=== PATIENT | male | born 1940 | race Caucasian/White ===

== ENCOUNTER 2017-02-19 14:48 | Inpatient (IN) | payer MEDICARE, BC ==
--- NOTE | ~2017-02-19 | CR72 ---
[facility] A Service of [facility] RADIOLOGY TEXT RESULTS PATIENT: MC RASHEED [facility] : [facility] UNIT #: [id number] AGE: [address]: Alondra Reis MD SEX: M ORDER DR: [id number] [facility] [address] [facility]. [place], [place] [address] [id number] MR#: [id number] Acc #: [id number] NAME: MC RASHEED. : 1940 SEX: M STUDY DATE/TIME: 02/21/2017 9:44 UNIT[facility] ROOM: [address] [place] [address] DESCRIPTION: CR Chest Single View Portable Attending Physician: Alondra Reis M.D. Ordering Physician: Alondra Reis M.D. Primary Care Physician: No Primary Care Physician MEDICAL IMAGING REPORT This report is preliminary unless electronic signature is present EXAM Chest x-ray portable. HISTORY Cough and chest congestion, left hip replacement a day ago. Symptoms for 1 day. COMMENT Single frontal portable view chest timed 9:44, 02/21/2017. COMPARISON Compared to 02/19/2017. FINDINGS Redemonstrated is underlying chronic lung disease. There might be minor atelectasis at the lung bases when comparison is made to prior. There is no congestive failure, pneumothorax or pleural effusion suspected. Heart size is top normal. IMPRESSION There is likely minor bibasilar atelectasis, otherwise, no active disease. I suspect there is underlying chronic lung disease. Please correlate with history. Dictated by... Anuja Che M.D. THIS IS AN ELECTRONICALLY VERIFIED REPORT Anuja Che M.D. at 02/22/2017 7:25 AM SANJEEV/gina TD: 02/21/2017 21:27 [facility] A Service of [facility] RADIOLOGY TEXT RESULTS PATIENT: MC RASHEED [facility] : 42 UNIT #: [id number] AGE: [address]: Alondra Reis MD SEX: M ORDER DR: JOB #: [id number] MEDICAL IMAGING REPORT Page 1 of 1 COPY
--- NOTE | ~2017-02-19 | CR71 ---
[facility] A Service of [facility] RADIOLOGY TEXT RESULTS PATIENT: MC RASHEED LOCATION: [facility] 470-01 : 42 UNIT #: [id number] AGE: [address]: Adele Triplett MD SEX: M ORDER DR: [id number] [facility] [address] [facility]. [place], [place] [address] [id number] MR#: [id number] Acc #: [id number] NAME: MC RASHEED. : 1940 SEX: M STUDY DATE/TIME: 02/19/2017 15:43 UNIT: [facility] ROOM: [facility] STUDY DESCRIPTION: CR Chest Single View Attending Physician: Virginia Edmond M.D. Ordering Physician: Bisi Parrish M.D. Primary Care Physician: No Primary Care Physician MEDICAL IMAGING REPORT This report is preliminary unless electronic signature is present EXAM Portable chest x-ray, 02/19/2017. HISTORY Trauma. Fall. Left-sided hip pain status post fall today. Fall. Left side hip pain. FINDINGS Two AP radiographs of the chest are presented. Comparison 04/14/2016. No acute-appearing bony abnormality. Moderate levoscoliosis of the thoracic spine. Lungs appear somewhat hyperinflated and relatively lucent in the upper lung zone suggesting underlying emphysema. There is no evidence of acute pulmonary disease. No pleural effusion or pneumothorax. No suspicious nodule. Dictated by... Huan Pinto M.D. THIS IS AN ELECTRONICALLY VERIFIED REPORT Huan Pinto M.D. at 02/20/2017 9:40 PM Christiano TD: 02/19/2017 19:49 JOB #: [id number] MEDICAL IMAGING REPORT Page 1 of 1 COPY
--- NOTE | ~2017-02-19 | CR206 ---
[facility] A Service of [facility] RADIOLOGY TEXT RESULTS PATIENT: MC RASHEED LOCATION: [facility] : 42 UNIT #: [id number] AGE: [address]: Alondra Reis MD SEX: M ORDER DR: [id number] [facility] [address] [facility]. [place], [place] [address] [id number] I MR#: [id number] Acc #: [id number] NAME: MC RASHEED. : 1940 SEX: M STUDY DATE/TIME: 02/21/2017 9:43 UNIT: [facility] ROOM: [facility] STUDY DESCRIPTION: CR Pelvis 1 or 2 Views Attending Physician: Alondra Reis M.D. Ordering Physician: Shaheed Terrazas M.D. Primary Care Physician: No Primary Care Physician MEDICAL IMAGING REPORT This report is preliminary unless electronic signature is present EXAM Pelvis 1 or 2 views. HISTORY Pain. Left hip replacement a day ago, pelvic pain. COMMENT Single frontal view of the pelvis is reviewed. COMPARISON There is a comparison from 02/20/2017. FINDINGS There is partly included field of view left hip arthroplasty. Femoral component not entirely in the field of view. Acetabular component appears located on the single frontal view. Lateral skin bertha are noted. Sacrum is largely obscured by overlying bowel gas and stool. No acute fracture is suspected. There are vascular calcifications. IMPRESSION Recent left hip arthroplasty with acetabular component located. Entirety of the femoral component not in the field of view. Dictated by... Anuja Che M.D. THIS IS AN ELECTRONICALLY VERIFIED REPORT Anuja Che M.D. at 02/22/2017 7:25 AM SANJEEV/gina TD: 02/21/2017 21:25 JOB #: [id number] [facility] A Service of [facility] RADIOLOGY TEXT RESULTS PATIENT: MC RASHEED LOCATION: [facility] : 42 UNIT #: [id number] AGE: [address]: Alondra Reis MD SEX: M ORDER DR: MEDICAL IMAGING REPORT Page 1 of 1 COPY
--- NOTE | ~2017-02-19 | CO ---
Unit #: [id number] #: [id number] Patient: MC BEAR [id number] [address] [address] [id number] I MR#: [id number] NAME: MC BEAR. ROOM: [facility] Age: 76 Sex: M Admission Date: 02/19/2017 : 1940 Attending Physician: Virginia Edmond M.D. Primary Care Physician: No Primary Care Physician Consultation Date: 02/20/2017 CONSULTATION REPORT CHIEF COMPLAINT Left hip pain. HISTORY OF PRESENT ILLNESS Mr. Bear is a 76-year-old gentleman who is seen for evaluation of a left femoral neck fracture. He states that he has had several falls over the past couple of weeks. He states that he has been somewhat dizzy or lightheaded. He had gone to check the mail on the porch. He lost his balance and tripped and fell injuring his left hip. He was subsequently unable to stand or bear weight on the affected extremity. He called a family member who responded to help him. Again, he was unable to stand and EMS was called. He was subsequently brought to the emergency department and diagnosed with a left displaced femoral neck fracture. The patient denies any dizziness preceding this fall in particular. He states that he lost his balance while bending over to garbage pick up man the mail and then fell. He is currently examined supine in his hospital bed. Family is at the beside. He is status post transfusion of two units of packed RBCs overnight. He states that his pain is relieved with currently prescribed pain medication and rest in bed. Any attempted range of motion or movement of the left leg causes pain. PAST MEDICAL HISTORY Atrial fibrillation with history of RVR, hypertension, gastroesophageal reflux disease, anxiety, COPD, chronic respiratory failure, sleep apnea. PAST SURGICAL HISTORY Right inguinal herniorrhaphy, cardiac catheterization, EGD, appendectomy, vasectomy. SOCIAL HISTORY The patient lives with his and daughter. He has no current tobacco use. He ambulates with a cane or even a walker but ambulates the majority of the time independently. He has no alcohol or illicit drug use. FAMILY HISTORY Not contributory to the current illness. ALLERGIES Sulfa, Boniva. HOME MEDICATIONS Unit #: [id number] #: [id number] Patient: MC BEAR 1. Aspirin. 2. Plavix. 3. AeroEclipse. 4. Pulmicort. 5. Brovana. 6. ProAir. 7. Respiclick. 8. Calcium and vitamin D supplement. 9. Multivitamin. 10. Sertraline. 11. Losartan/HCTZ. 12. Amlodipine. 13. Tramadol. 14. Clonidine. 15. Bystolic. 16. Dexilant. 17. Prednisone. REVIEW OF SYSTEMS Ten systems are reviewed and negative except as noted in the HPI and again with regard to some instance of the dizziness and sensation of lightheadedness as well as intermittent need for supplemental oxygen at home. PHYSICAL EXAMINATION GENERAL APPEARANCE: Age appropriate appearing 76-year-old gentleman in no acute distress or discomfort. PSYCHIATRIC: Awake, alert, oriented to person, place, time and situation with a normal range of mood and affect. HEENT: Normocephalic, atraumatic cranium. Pupils equal, round and reactive to light. CARDIAC: Regular rate and rhythm. PULMONARY: No increased work of breathing. Symmetric chest rise. ABDOMEN: Nontender, nondistended. NEUROLOGIC: Intact motor and sensory function to bilateral lower extremities throughout. LYMPHATICS: No lymphadenopathy or lymphedema. SKIN: No overlying abrasions or open wounds are noted. MUSCULOSKELETAL: Left leg is minimally shortened. He has pain with any gentle logrolling of the left lower extremity. DIAGNOSTIC STUDIES LABORATORY: INR 1.1. BMP is unremarkable. Hemoglobin 7.9 which responded to 8.7 following transfusion. IMAGING: Plain film radiographs review of the left hip. The patient demonstrated a displaced left femoral neck fracture. IMPRESSION A 76-year-old gentleman with left displaced femoral neck fracture. PLAN We have reviewed his radiographic findings. He has a displaced femoral neck fracture which warrants treatment with an endoprosthesis. The nature of the surgery including risks, benefits and alternatives have been discussed and reviewed with both patient and family. We will plan for a left hip hemiarthroplasty via posterior approach today pending cardiac clearance. Unit #: [id number] #: [id number] Patient: MC BEAR Dictated by... Shaheed Terrazas M.D. SLOANE/chavez TD: 02/20/2017 08:27 JOB #: [id number] CONSULTATION REPORT Page 1 of 1 X Shaheed Terrazas MD CONSULTATION REPORT
--- NOTE | ~2017-02-19 | HP ---
Unit #: [id number] #: [id number] Patient: MC RASHEED [id number] [facility]. [place], [place] [address] [id number] I MR#: [id number] NAME: MC RASHEED. ROOM: [address] Age: 76 Sex: M Admission Date: 02/19/2017 : 1940 Attending Physician: Virginia Edmond M.D. HISTORY AND PHYSICAL CHIEF COMPLAINT Fall. HISTORY OF PRESENT ILLNESS The patient is a 76-year-old male with a past medical history of atrial fibrillation, hypertension, GERD, anxiety, COPD, and chronic respiratory failure, who presented to the emergency department for evaluation of the above. The patient states that he was not feeling well today. He states that he had what he called a "panic attack." He woke up around 5 a.m. and was short of breath. He used his rescue inhaler with some relief. He was also diaphoretic. He denied any chest pain but states that he has been somewhat lightheaded off and on for the past week. He subsequently went out to get mail. He dropped some of the mail, bent over to pick it up and fell. He had the immediate onset of left hip pain and was unable to get up. He was brought to the emergency department for further evaluation. In the emergency department, x-ray confirmed fracture of the left femoral neck. Laboratory is notable for hemoglobin of 7.9. The patient denies any blood in the stool or black tarry stool but states that he has been constipated. He is being admitted to [facility] for evaluation and further treatment. PAST MEDICAL HISTORY 1. Admission to [facility] December 18-2011, for atrial fibrillation with rapid ventricular response. He was transferred to [facility] where he underwent cardiac catheterization (no records). 2. Atrial fibrillation, not on chronic anticoagulation, followed by Dr. Chanel. 3. Hypertension. 4. Gastroesophageal reflux disease. 5. Anxiety. 6. Chronic obstructive pulmonary disease followed by Dr. Kwon. 7. Chronic respiratory failure. The patient is on two liters of oxygen per nasal cannula p.r.n. 8. Obstructive sleep apnea noncompliant with CPAP. 9. Echocardiogram December 20, 2011, showed an ejection fraction greater than 55%. PAST SURGICAL HISTORY 1. Right inguinal hernia repair. 2. Cardiac catheterization. Unit #: [id number] #: [id number] Patient: MC RASHEED 3. EGD March 12, 2016, with Dr. Parker, showed esophageal ring dilated with balloon. He also had a hiatal hernia and mild gastroduodenitis. 4. Appendectomy. 5. Vasectomy. SOCIAL HISTORY The patient lives with his . He quit smoking 20 years ago. He has a cane. His code status is a Full Code. FAMILY HISTORY Notable for his dad having dementia. ALLERGIES Sulfa, Boniva. HOME MEDICATIONS 1. Aspirin. 2. Plavix. 3. AeroEclipse. 4. Pulmicort. 5. Brovana. 6. ProAir RespiClick. 7. Calcium plus D. 8. Multivitamin. 9. Sertraline. 10. Losartan and hydrochlorothiazide. 11. Amlodipine. 12. Tramadol. 13. Clonidine. 14. Bystolic. 15. Dexilant. 16. Prednisone. Home medications will need to be reviewed and verified. REVIEW OF SYSTEMS A complete review of systems is negative except as indicated in the History of Present Illness. The patient states that he does have a cough, but it is no worse than baseline. PHYSICAL EXAMINATION VITAL SIGNS: Temperature is 98, pulse 85, respirations 18, blood pressure 134/83, and oxygen saturation is 99% on room air. GENERAL: Patient is a male who is awake, alert, and in no acute distress. HEENT: Head is atraumatic. Mucous membranes are moist. NECK: Supple. Trachea is midline. CARDIOVASCULAR: Regular rate and rhythm. LUNGS: Clear to auscultation bilaterally with no increased work of breathing. ABDOMEN: Soft and nontender with bowel sounds present in all four quadrants. EXTREMITIES: No pedal edema. Patient is tender to palpation in the left hip area. He has decreased range of motion involving the left lower extremity secondary to pain. NEUROLOGIC: Patient is awake and alert. He follows commands. PSYCHIATRIC: Mood and affect are normal. Patient is cooperative. SKIN: Skin of examined areas is warm and dry. Unit #: [id number] #: [id number] Patient: MC RASHEED DIAGNOSTIC STUDIES LABORATORY: Basic metabolic panel notable for potassium of 3.2. Complete blood count notable for which blood cell count of 14.6, hemoglobin and hematocrit 7.9 and 25.2, respectively, and MCV is 79.9. IMAGING: Left hip x-ray shows left femoral neck fracture. Chest x-ray shows nothing acute. CARDIOLOGY: EKG shows sinus rhythm with premature atrial complexes and a rate of 62 beats per minute. ASSESSMENT The patient is a 76-year-old male with: 1. Left femoral neck fracture. The patient's revised De Cardiac Risk Index is consistent with at least a 0.4% rate of cardiac , nonfatal myocardial infarction, or nonfatal cardiac arrest based on the information available. 2. Status post fall. 3. Leukocytosis possibly stress related. 4. Microcytic anemia. The patient's hemoglobin was 15.1 on April 14, 2016. It is 7.9 today. The patient denies any blood in the stool or black tarry stool. He is on aspirin and Plavix. 5. Hypokalemia. 6. Atrial fibrillation not on chronic anticoagulation, followed by Dr. Chanel. 7. Hypertension. 8. Gastroesophageal reflux disease. 9. Anxiety. 10. Chronic obstructive pulmonary disease, followed by Dr. Kwon. 11. Chronic respiratory failure on two liters of oxygen per nasal cannula as needed. 12. Obstructive sleep apnea noncompliant with CPAP. 13. Former smoker. PLAN 1. Admit to intermediate level. 2. Clear liquid diet. 3. N.p.o. after midnight. 4. Consult Dr. Moreno regarding femoral neck fracture. 5. Consult Dr. Styles for cardiac clearance. 6. Get records from [facility] including cardiac catheterization. 7. Bedrest. 8. Fall precautions. 9. Check LFTs and INR. 10. Urinalysis with culture and sensitivity. 11. Blood cultures x2. 12. Hemoccult stool. 13. Iron studies, B12, and folate. 14. Consult Dr. Parker regarding anemia. 15. Check magnesium level. 16. Potassium/magnesium protocol. 17. Supplemental oxygen. 18. P.r.n. DuoNebs. 19. Cardiac enzymes. 20. Hold aspirin and Plavix. 21. Repeat labs in the morning. 22. Additional workup and consultants based on above. Unit #: [id number] #: [id number] Patient: MC RASHEED 1. Dictated by Tavo Linda TD: 02/19/2017 18:26 JOB #: [id number] HISTORY AND PHYSICAL Page 1 of 1 X Virginia Edmond MD X HISTORY AND PHYSICAL
--- NOTE | ~2017-02-19 | CR72 ---
[facility] A Service of [facility] RADIOLOGY TEXT RESULTS PATIENT: MC RASHEED LOCATION: [facility] 470-01 : 42 UNIT #: [id number] AGE: [address]: Alondra Reis MD SEX: M ORDER DR: [id number] [facility] [address] [facility]. [place], [place] [address] [id number] I MR#: [id number] Acc #: [id number] NAME: MC RASHEED. : 1940 SEX: M STUDY DATE/TIME: 02/22/2017 15:06 UNIT: [facility] ROOM: [facility] STUDY DESCRIPTION: CR Chest Single View Portable Attending Physician: Alondra Reis M.D. Ordering Physician: Physician Non-Staff Primary Care Physician: Primary Care Physician No MEDICAL IMAGING REPORT This report is preliminary unless electronic signature is present EXAM Portable chest x-ray HISTORY Cough, congestion, short of air post left hip replacement. FINDINGS AP left anterior oblique view of the chest is presented. Comparison 02/21/2017. The heart shows stable borderline enlargement given obliquity. Mediastinal contours normal. Lungs well inflated. There is evidence of emphysema in the upper lung zones. There are linear densities at the bilateral lung bases, likely atelectatic in nature. There is no compelling evidence of pneumonia or edema. No pleural effusion or pneumothorax and no suspicious nodule. Bony structures show no acute abnormality. Dictated by... Huan Pinto M.D. THIS IS AN ELECTRONICALLY VERIFIED REPORT Huan Pinto M.D. at 02/23/2017 6:53 PM Sapna TD: 02/23/2017 09:55 JOB #: [id number] MEDICAL IMAGING REPORT Page 1 of 1 COPY
--- NOTE | ~2017-02-19 | DS ---
Unit #: [id number] #: [id number] Patient: MC RASHEED [id number] [address] [address] [id number] I MR#: [id number] NAME: MC RASHEED ROOM: 470 Age: 76 Sex: M Admission Date: 02/19/2017 : 1940 Discharge Date: 02/24/2017 Attending Physician: Alondra Reis M.D. Primary Care Physician: No Primary Care Physician DISCHARGE SUMMARY PRINCIPAL DIAGNOSES 1. Left femoral neck fracture status post left hemiarthroplasty. 2. Paroxysmal atrial fibrillation, now converted back to normal sinus rhythm. 3. Acute on chronic hypoxic respiratory failure, maintained on 2-3 liters of oxygen per nasal cannula continuously. 4. ing. 5. Reactive leukocytosis. 6. Vitamin B12 deficiency with vitamin B12 level of 232. 7. Iron deficiency anemia. 8. Hypokalemia. 9. Chronic obstructive pulmonary disease. 10. Chronic back pain. 11. Mild gastritis. 12. Mild duodenitis. 13. Anxiety. 14. Obstructive sleep apnea, noncompliant with continuous positive airway pressure. 15. Mild protein malnutrition. 16. Severe physical deconditioning. 17. Acute blood loss anemia postoperatively with mild left hip hematoma. 18. Osteoporosis. CONSULTANTS 1. Dr. Terrazas, orthopedic surgery. 2. Dr. Parker, gastroenterology. 3. Dr. Styles, cardiology. PROCEDURES 1. Left hip hemiarthroplasty on February 20, 2017. 2. EGD on February 23, 2017 with mild gastritis and duodenitis. DIAGNOSTIC STUDIES CARDIOVASCULAR: Two-dimensional echocardiogram on February 20, 2017. Ejection fraction is not reported given to poor study. Valves appear normal. IMAGING: Chest x-ray on February 19, 2017 with levoscoliosis of thoracic spine, underlying emphysema. No other acute findings. X-ray of the left hip on February 19, 2017 with a complete fracture of the mid inferior left femoral neck, [id number] hip joint narrowing bilaterally, extensive atherosclerotic change noted. CLINICAL HISTORY AND HOSPITAL COURSE Unit #: [id number] #: [id number] Patient: MC RASHEED is a 76-year-old male who fell at home and subsequently had the abrupt onset of left hip pain. X-ray confirmed left hip fracture, and the patient was subsequently admitted. In regard to the patient's left hip fracture, Dr. Terrazas was consulted. The patient underwent left hip hemiarthroplasty. Postoperatively he has done exceptionally well and is able to ambulate with some assistance. Hemoglobin preoperatively was found to be low at 7.9, and the patient was also found to be significantly iron deficient. He did require blood transfusion during hospitalization. On day of discharge hemoglobin is now 9.3. He has been placed on both iron and vitamin B12 supplementation, and hemoglobin will need to be followed closely at rehab. He will follow up with Dr. Terrazas in 2 weeks. He is weightbearing as tolerated on the left lower extremity. In regard to the patient's iron deficiency anemia noted upon presentation, Dr. Parker was consulted. After hip surgery, the patient underwent EGD with findings of gastritis and duodenitis. He will remain on his PPI therapy and will undergo colonoscopy within 4-6 weeks after he is discharged from rehab. The patient also has a history of paroxysmal atrial fibrillation and was in A fib for a portion of his hospitalization, for which cardiology was consulted. Two-dimensional echocardiogram was done but, unfortunately, was of poor quality. The patient has converted back to normal sinus rhythm. However, his [id number] score is significantly elevated, and after discussion with his questionable GI bleeding, he has been placed on low-dose Coumadin with a goal INR of 2-3 and will initiate aspirin when Lovenox is completed. At this time given he is back in normal sinus rhythm, cardiology does not feel he needs bridging therapy. However, given the fact he recently had hip surgery, I am going to place him on DVT dose prophylaxis until INR is therapeutic, at which time Lovenox can be discontinued. The patient also had a lot of evidence of sundowning and anxiety during hospitalization. I am going to place him on low-dose Ativan at night. The patient was also mildly hypoxic postoperatively, but he has returned to his baseline, which is approximately 2-3 liters of oxygen per nasal cannula continuously. Repeat chest x-rays were unremarkable, and he has been placed on breathing treatments. The patient also had significant leukocytosis, but multiple workups for infection were negative. On date of discharge, white blood cell count is now down to 17.6, and this can be followed at rehab. I suspect this may be related to some mild left hip hematoma but is present postoperatively, and again, it can be followed. The patient's other chronic conditions remained stabled. He will be discharged to rehab today. DISCHARGE CONDITION Stable. DISCHARGE STATUS Discharge to rehab. DISCHARGE MEDICATIONS Unit #: [id number] #: [id number] Patient: MC RASHEED 1. ProAir RespiClick 1 puff q.i.d. p.r.n. shortness of breath. 2. Combivent nebulizer treatment 3 mL q.6 hours p.r.n. shortness of breath. 3. Pulmicort 0.5 mg nebulized b.i.d. 4. Perforomist 20 mcg nebulized b.i.d. 5. Losartan/HCTZ 100/25 mg 1 tablet daily. 6. Coumadin 2 mg daily, again with goal INR of 2-3. I will note Coumadin was initiated on the evening of the . 7. Zoloft 150 mg daily. 8. Coreg 3.125 mg p.o. b.i.d. 9. Colace 100 mg b.i.d. 10. Catapres 0.2 mg b.i.d. 11. Ferrous sulfate 325 mg b.i.d. 12. Aspirin 81 mg daily, can be initiated when INR is greater than or equal to 2. 13. [place] 5/325 mg 1 tablet p.o. q.6 hours p.r.n. pain. 14. Omeprazole 40 mg daily. 15. Os-Tab 500 plus D 1 b.i.d. 16. Vitamin B12 - 1,000 mcg p.o. daily. 17. Ativan 0.5 mg p.o. q.h.s. 18. Lovenox 40 mg subcu q.24 hours, to stop when INR is greater than or equal to 2. 19. MiraLAX 17 grams p.o. daily p.r.n. constipation. DISCHARGE INSTRUCTIONS Patient instructed to follow a heart healthy diet. He is to wear his oxygen at 2-3 liters at all times. He is weightbearing as tolerated on the left lower extremity and can increase activity as tolerated. I would monitor, as well, for sundowning at night at rehab. FOLLOWUP 1. Patient will follow up with Dr. Terrazas in 2 weeks. 2. Patient will follow up with Dr. Styles in approximately 4 weeks. 3. Patient will follow up with Dr. Parker in 4-6 weeks for outpatient colonoscopy. NOTE: Time spent on discharge today - 42 minutes. Dictated by... Alondra Reis M.D. TANNER/sebastián TD: 02/24/2017 09:17 JOB #: [id number] DISCHARGE SUMMARY Page 1 of 1 X Alondra Reis MD X DISCHARGE SUMMARY
--- NOTE | ~2017-02-19 | EKG ---
PATIENT: MC RASHEED UNIT #: [id number] Ventricular Rate: 62 BPM Atrial Rate: 62 BPM P-R Interval: 140 ms QRS Duration: 96 ms Q-T Interval: 454 ms QTC Calculation(Bezet): 460 ms P [place]: 46 degrees Calculated R [place]: -62 degrees Calculated T [place]: 48 degrees Diagnosis Line: Sinus rhythm with Premature atrial complexes Diagnosis Line: Left axis deviation Diagnosis Line: Low voltage QRS Diagnosis Line: Inferior infarct (cited on or before 19-DEC-2011) Diagnosis Line: Abnormal ECG Diagnosis Line: When compared with ECG of 14-APR-2016 16:46, Diagnosis Line: Premature atrial complexes are now Present Diagnosis Line: Criteria for Anterior infarct are no longer Diagnosis Line: Present Diagnosis Line: T wave inversion no longer evident in Anterior Diagnosis Line: leads Diagnosis Line: Confirmed by TAYLOR MCKEON MD ([id number]) on Diagnosis Line: 02/20/2017 8:01:26 AM INTERPRETING MD: MIKE CLEMENTE
--- NOTE | ~2017-02-19 | OR ---
Unit #: [id number] #: [id number] Patient: MC RASHEED [id number] [address] [place], [place] [address] [id number] I MR#: [id number] NAME: MC RASHEED. ROOM: [facility] Date of Procedure: 02/23/2017 Admission Date: 02/19/2017 Surgeon: Addy Parker M.D. : 1940 Attending Physician: Alondra Reis M.D. OPERATIVE REPORT PROCEDURE PERFORMED Esophagogastroduodenoscopy with biopsy. INDICATIONS FOR PROCEDURE The patient with severe iron-deficiency anemia, undergoing evaluation with upper endoscopy. MEDICATIONS Monitored anesthesia. POSTOPERATIVE FINDINGS 1. Small hiatal hernia. 2. Mild gastritis and mild duodenitis. Biopsies taken looking for H pylori. 3. No AVMs, ulcers, or other bleeding lesions were seen. PLAN He will need colonoscopy when okay with Orthopedics. DESCRIPTION OF PROCEDURE The patient was explained of the procedure, risks, and benefits along with risks and benefits of anesthesia. He was brought to the endoscopy room. Propofol anesthesia was given. Bite block was placed. The scope was passed down the mouth into the esophagus, stomach, duodenum, and distal duodenum. Findings as described. Biopsies taken. Gently, I pulled it out of the patient's mouth. He tolerated it well. Dictated by... Tavo Andrade/janis TD: 02/23/2017 14:29 JOB #: [id number] Unit #: [id number] #: [id number] Patient: MC RASHEED OPERATIVE REPORT Page 1 of 1 X Addy Parker MD X PROCEDURE OPERATIVE NOTE
--- NOTE | ~2017-02-19 | OR ---
Unit #: [id number] #: [id number] Patient: MC RASHEED [id number] [address] [place], [place] [address] [id number] I MR#: [id number] NAME: MC RASHEED. ROOM: [facility] Date of Procedure: 02/20/2017 Admission Date: 02/19/2017 Surgeon: Shaheed Terrazas M.D. : 1940 Attending Physician: Alondra Reis M.D. OPERATIVE REPORT PREOPERATIVE DIAGNOSIS Left displaced femoral neck fracture. POSTOPERATIVE DIAGNOSIS Left displaced femoral neck fracture. PROCEDURE PERFORMED Left hip hemiarthroplasty. IMPLANTS DePuy CORAIL size 16 stem with a +5 mm neck adaptor and a 55 mm outer diameter bipolar head. NURSING CONSULTANT Dane Valdez, PGY V. ANESTHESIA General. ESTIMATED BLOOD LOSS 200 mL. COMPLICATIONS None apparent. SPECIMENS Femoral head to Pathology. INDICATIONS FOR PROCEDURE Mr. Rasheed is a 76-year-old gentleman with a displaced left femoral neck fracture. We discussed surgical treatment options. At this point, he and his elected to proceed with a left hip hemiarthroplasty via a posterior approach. DESCRIPTION OF PROCEDURE The patient was identified in the preoperative holding area. The operative site was marked. Preoperative antibiotics were administered. The patient was brought to the operating room and placed supine on the operating table. A general anesthetic was induced. The patient was positioned in a lateral decubitus position on a pegboard. The left leg was prepped and draped in sterile fashion. Unit #: [id number] #: [id number] Patient: MC RASHEED A standard incision for posterior approach was marked out over the greater trochanter and gluteus. The skin was incised sharply with a 10-blade knife. Dissection was carried down to the fascia anish. The fascia anish was divided in-line with the skin incision. The gluteus reji was then divided in-line with the fascial incision. Dissection was carried down to the bursal tissues. The bursa was divided and then a Cobra retractor placed under the gluteus medius. The short external rotators, posterior capsule, and piriformis were then all taken down as one sleeve of tissue directly off the posterior femoral neck. The Cobra retractor was then repassed deep to the gluteus minimus. The femoral neck was then readily identifiable. The neck fracture was inspected. The neck was very low fracture, just at the level of the lesser trochanter. The neck was then recut cutting primarily only the lateral cortex into the shoulder area. Care was taken to avoid injury to the greater trochanter. The head was then removed and sized. This sized to approximately 56. We trialed a 56 as well as 55 and even a 57 mm head. We referred the 55. We then placed the femur into position to femoral broaching. The canal finder was utilized to open the canal followed by lateralizing rat-tail rasp. We then sequentially broached all the way up to a size 15. This had good rotational stability. We trialed off a size 15. This reduced easily with a +1.5 mm neck and was short at this level. We then dislocated the hip. We went back to assess our broach. The 15 broach was then unstable. We broached up to a size 16, which had good rotational stability. We implanted the real 16 broach and we went up to a +5 mm neck adapter with a 55 bipolar head. The hip was then reduced and taken through range of motion. The hip was stable in 90 degrees of flexion, 10 degrees of adduction, and approximately 60 to 65 degrees of internal rotation. The hip was stable to gravity, internal rotation test. The wound was then irrigated. The posterior capsule, piriformis, and short external rotators were repaired back with FiberWire suture. The hip was then closed in a layered fashion including the fascia anish, subcutaneous tissue, and bertha in the skin. Sterile dressings were applied. The patient was placed into a hip abduction pillow. DISPOSITION Aroused from anesthesia and transferred to the recovery room in stable condition. Dictated by... Tavo Chacon/janis TD: 02/21/2017 21:30 JOB #: [id number] OPERATIVE REPORT Page 1 of 1 X Shaheed Terrazas MD PROCEDURE OPERATIVE NOTE
--- NOTE | ~2017-02-19 | EKG ---
PATIENT: MC RASHEED UNIT #: [id number] Ventricular Rate: 100 BPM Atrial Rate: 100 BPM P-R Interval: 160 ms QRS Duration: 84 ms Q-T Interval: 354 ms QTC Calculation(Bezet): 456 ms P [place]: 20 degrees Calculated R [place]: 169 degrees Calculated T [place]: 34 degrees Diagnosis Line: Sinus rhythm with occasional Premature ventricular Diagnosis Line: complexes Diagnosis Line: Indeterminate axis Diagnosis Line: Inferior infarct (cited on or before 19-DEC-2011) Diagnosis Line: Abnormal ECG Diagnosis Line: When compared with ECG of 19-FEB-2017 16:05, Diagnosis Line: Premature ventricular complexes are now Present Diagnosis Line: Premature atrial complexes are no longer Present Diagnosis Line: Vent. rate has increased BY 38 BPM Diagnosis Line: Confirmed by PONCE BNETLEY MD ([id number]) on Diagnosis Line: 02/22/2017 10:03:34 AM INTERPRETING MD: RODOLFO
--- NOTE | ~2017-02-19 | CR206 ---
[facility] Service of [facility] RADIOLOGY TEXT RESULTS PATIENT: MC RASHEED LOCATION: [place] [address]- : [birth year] UNIT #: [id number] AGE: [address]: Adele Triplett MD SEX: M ORDER DR: [id number] [facility] [address]. [place], [place] [address] [id number] I MR#: [id number] Acc #: [id number] NAME: MC RASHEED. : 1940 SEX: M STUDY DATE/TIME: 02/20/2017 14:48 UNIT: [facility] ROOM: [facility] STUDY DESCRIPTION: CR Pelvis 1 or 2 Views Attending Physician: Adele Triplett M.D. Ordering Physician: Shaheed Terrazas M.D. Primary Care Physician: No Primary Care Physician MEDICAL IMAGING REPORT This report is preliminary unless electronic signature is present EXAM AP pelvis HISTORY Postop left hip replacement. Hip pain today. FINDINGS AP view of the pelvis demonstrates postop changes of recent bipolar left hip replacement. Small amount of postoperative soft tissue gas about the left hip. Pelvic bone alignment is satisfactory. No fracture. Mild generalized demineralization. IMPRESSION 1. Recent postop changes of left hip replacement. 2. No acute finding. Satisfactory bone alignment in the pelvis. No fracture. Dictated by... Jonathan Mason M.D. THIS IS AN ELECTRONICALLY VERIFIED REPORT Jonathan Mason M.D. at 02/20/2017 11:29 PM Arabella TD: 02/20/2017 18:00 JOB #: [id number] MEDICAL IMAGING REPORT Page 1 of 1 COPY
--- NOTE | ~2017-02-19 | CR150 ---
[facility] A Service of [facility] RADIOLOGY TEXT RESULTS PATIENT: MC RASHEED LOCATION: [facility] 470-01 : [birth year] UNIT #: [id number] AGE: [address]: Adele Triplett MD SEX: M ORDER DR: [id number] [facility] [address] [place], [place] [address] [id number] I MR#: [id number] Acc #: [id number] NAME: MC RASHEED. : 1940 SEX: M STUDY DATE/TIME: 02/19/2017 15:46 UNIT: [facility] ROOM: [facility] STUDY DESCRIPTION: CR Hip Min 2 Views Lt Attending Physician: Virginia Edmond M.D. Ordering Physician: Bisi Parrish M.D. Primary Care Physician: Primary Care Physician No MEDICAL IMAGING REPORT This report is preliminary unless electronic signature is present EXAM Left hip series 02/19/2017 HISTORY Trauma, fall. Fell today. Left hip pain status post fall. FINDINGS AP radiograph of pelvis presented with oblique view left hip. There is a complete fracture of the mid to inferior left femoral neck. The shaft fragment is in internal rotation and displaced superolaterally by up to about 1.5 cm. Femoral head remains located in the acetabulum. Mild to moderate hip joint narrowing bilaterally probably greater on the left than right. The bony ring of pelvis is intact. The visualized right femur is intact. Lower lumbar spine shows no acute abnormality. Bowel gas pattern normal. Extensive atherosclerotic arterial calcifications. Dictated by... Huan Pinto M.D. THIS IS AN ELECTRONICALLY VERIFIED REPORT Huan Pinto M.D. at 02/20/2017 9:40 PM SHARATH/colton TD: 02/19/2017 19:50 JOB #: [id number] MEDICAL IMAGING REPORT Page 1 of 1 COPY
[~2017-02-19 14:48] MED LIST: AEROECLIPSE II1 EACH MC; AMLODIPINE BESYL5 MG PO; ASPIRIN PO; B COMPLEX-VITA1 EACH PO; BAYER ASPIRIN325 M1 PO; BROVANA15 MCG/2 M INH; BROVANA15 MCG/2 M NEB; BUDESONIDE0.5 MG/2 M NEB; BYSTOLIC2.5 MG PO; BYSTOLIC5 MG PO; CALCIUM + D 6001 TA1 PO; CALCIUM + VITAM1 TAB PO; CALCIUM 600 MG1 TA3 PO; CERTAGEN PO; CIPRO PO; CLONIDINE HCL0.1 MG PO; CLONIDINE PO; CLOPIDOGREL BIS75 MG PO; CLOPIDOGREL75 MG PO; COATED ASPIRIN325 M1 PO; COMBIVENT INH14.7 GM INH; CRESTOR10 MG PO; DEXILANT60 MG PO; DIOVAN PO; FLAGYL PO; IPRATROPIUM0.2 MG/ML NEB; LISINOPRIL-HCTZ1 T14 PO; LISINOPRIL-HCTZ1 T20 PO; LORTAB 5/500 TA1 TA1 PO; LOSARTAN-HCTZ1 EAC2 PO; MEDROL4 MG PO; MULTI VITAMIN1 EACH PO; OXYGEN; PHENERGAN PO; PREDNISONE5 MG PO; PROAIR HFA8.5 GM INH; PROAIR RESPICL90 MCG; PULMICORT0.25 MG/2 IH; PULMICORT0.5 MG/21 INH; PULMICORT200 MCG/AE INH; SERTRALINE HCL100 M1 PO; SPIRIVA18 MCG INH; TRAMADOL HCL100 M1 PO; TRAMADOL HCL50 M2 PO; VICODIN 5/500 T1 TAB PO; VITAMIN D31000 UNI1 PO; ZANTAC PO; ZITHROMAX PO; ZOLOFT PO
[2017-02-19 16:28] LABS: BASOPHIL# 0.1 X10e3 (0-0.3); BASOPHIL% 0.6 % (0-2.5); EOSINOPHIL# 0.3 X10e3 (0-0.7); EOSINOPHIL% 2.3 % (0.0-7.0); HEMATOCRIT 25.2 % (38.0-50.0); HEMOGLOBIN 7.9 gm/dL (13.0-16.0); LYMPHOCYTE% 13.9 % (17.0-45.0); MEAN CELL VOLUME 79.9 FL (83-96); MEAN CORPUSCULAR HGB CONC 31.3 g/dL (30-36); MEAN PLATELET VOLUME 9.4 FL (6.5-11.5); MONOCYTE% 7.2 % (3.0-12.0); NEUTROPHIL# 11.1 X10e3 (1.5-7.1); PLATELET COUNT 261 X10e3 (140-420); RED BLOOD COUNT 3.15 X10e (3.90-5.60); RED CELL DISTRIBUTION WIDTH 18.3 % (11.0-15.5); WHITE BLOOD COUNT 14.6 X10e3 (4.0-10.5)
[2017-02-19 16:33] LABS: DIFF IND YES
[2017-02-19 16:45] LABS: PLATELET ESTIMATE NORMAL (NORMAL)
[2017-02-19 16:46] LABS: CALCIUM SERUM 8.4 mg/dL (8.4-10.2); GLOM FILT RATE Estimated 73.8 mL/min (>60); POTASSIUM 3.2 mmol/L (3.5-5.1)
[2017-02-19 17:06] LABS: ANISOCYTOSIS SL
[2017-02-19 17:07] LABS: MICROCYTOSIS SL
[2017-02-19 18:41] LABS: INR 1.1; PROTHROMBIN TIME (PATIENT) 11.4 SECONDS (10.0-11.7)
[2017-02-19 18:51] LABS: ALBUMIN SERUM 3.6 g/dL (3.5-5.0); BILIRUBIN, DIRECT 0.1 mg/dL (0.0-0.2); BILIRUBIN,INDIRECT 0.3 mg/dL (0.0-0.9); BILIRUBIN,TOTAL 0.4 mg/dL (0.2-2.0); PROTEIN TOTAL SERUM 6.8 g/dL (6.0-8.3)
[2017-02-19 19:02] LABS: MAGNESIUM 1.8 mg/dL (1.6-3.0)
[2017-02-19 19:15] LABS: URINE SOURCE CLEAN CATCH
[2017-02-19 19:15] LABS: FOLATE (FOLIC ACID) 10.6 ng/mL (>5.8)
[2017-02-19 19:19] LABS: URINE APPEARANCE CLEAR; URINE BILIRUBIN NEG (NEG); URINE BLOOD NEG (NEG); URINE COLOR YELLOW; URINE GLUCOSE NEG (NEG); URINE KETONE NEG (NEG); URINE LEUKOCYTE ESTERASE NEG (NEG); URINE NITRATE NEG (NEG); URINE PROTEIN NEG (NEG); URINE SPECIFIC GRAVITY 1.019 (1.003-1.035); URINE UROBILINOGEN 0.2 MG/DL (NEG)
[2017-02-19 19:21] LABS: %MB 5.8 % (0.0-4.0); MB 5.3 ng/ml
[2017-02-19 19:23] LABS: CULTURE INDICATED? NO
[2017-02-19 19:29] LABS: HEMATOCRIT 22.6 % (38.0-50.0); HEMOGLOBIN 7.1 gm/dL (13.0-16.0)
[2017-02-19] MEDS ORDERED: OMEPRAZOLE40 M1 PO (20:41)
[2017-02-19] MEDS ORDERED: FERRO-TIME325 MG PO (20:42)
[2017-02-20 03:44] LABS: BASOPHIL# 0.1 X10e3 (0-0.3); BASOPHIL% 0.6 % (0-2.5); EOSINOPHIL# 0.3 X10e3 (0-0.7); EOSINOPHIL% 1.9 % (0.0-7.0); HEMATOCRIT 27.4 % (38.0-50.0); HEMOGLOBIN 8.7 gm/dL (13.0-16.0); LYMPHOCYTE# 1.9 X10e3 (1.0-3.5); LYMPHOCYTE% 12.3 % (17.0-45.0); MEAN CELL VOLUME 81.9 FL (83-96); MEAN CORPUSCULAR HEMOGLOBIN 25.9 PG (28-34); MEAN CORPUSCULAR HGB CONC 31.6 g/dL (30-36); MEAN PLATELET VOLUME 9.7 FL (6.5-11.5); MONOCYTE# 1.6 X10e3 (0-1.0); MONOCYTE% 10.4 % (3.0-12.0); NEUTROPHIL# 11.2 X10e3 (1.5-7.1); NEUTROPHIL% 74.8 % (40-75); PLATELET COUNT 239 X10e3 (140-420); RED BLOOD COUNT 3.34 X10e (3.90-5.60); RED CELL DISTRIBUTION WIDTH 18.5 % (11.0-15.5)
[2017-02-20 03:49] LABS: DIFF IND NO
[2017-02-20 03:57] LABS: INR 1.1; PROTHROMBIN TIME (PATIENT) 11.5 SECONDS (10.0-11.7)
[2017-02-20 04:15] LABS: ALBUMIN SERUM 3.5 g/dL (3.5-5.0); BILIRUBIN,TOTAL 1.1 mg/dL (0.2-2.0); BUN/CREATININE RATIO 18.33; CREATININE SERUM 0.6 mg/dL (0.6-1.4); GLOM FILT RATE Estimated 99.1 mL/min (>60); MAGNESIUM 2.2 mg/dL (1.6-3.0); PROTEIN TOTAL SERUM 6.6 g/dL (6.0-8.3)
[2017-02-20 08:43] LABS: %MB 4.2 % (0.0-4.0)
[2017-02-20 11:17] LABS: FOLATE (FOLIC ACID) 11.2 ng/mL (>5.8)
[2017-02-21 03:42] LABS: HEMATOCRIT 29.5 % (38.0-50.0); HEMOGLOBIN 9.4 gm/dL (13.0-16.0); MEAN CORPUSCULAR HEMOGLOBIN 26.1 PG (28-34); MEAN CORPUSCULAR HGB CONC 31.8 g/dL (30-36); MEAN PLATELET VOLUME 9.9 FL (6.5-11.5); RED BLOOD COUNT 3.61 X10e (3.90-5.60); RED CELL DISTRIBUTION WIDTH 17.6 % (11.0-15.5); WHITE BLOOD COUNT 20.9 X10e3 (4.0-10.5)
[2017-02-21 04:09] LABS: ALBUMIN SERUM 3.2 g/dL (3.5-5.0); CALCIUM SERUM 7.6 mg/dL (8.4-10.2); CREATININE SERUM 0.7 mg/dL (0.6-1.4); MAGNESIUM 1.9 mg/dL (1.6-3.0); POTASSIUM 3.5 mmol/L (3.5-5.1); PROTEIN TOTAL SERUM 6.2 g/dL (6.0-8.3)
[2017-02-21 08:15] LABS: HEMATOCRIT 28.4 % (38.0-50.0); HEMOGLOBIN 9.1 gm/dL (13.0-16.0)
[2017-02-21 11:25] LABS: HEMOGLOBIN 9.2 gm/dL (13.0-16.0)
[2017-02-22 03:29] LABS: HEMATOCRIT 26.6 % (38.0-50.0); HEMOGLOBIN 8.3 gm/dL (13.0-16.0); MEAN CELL VOLUME 82.5 FL (83-96); MEAN CORPUSCULAR HEMOGLOBIN 25.7 PG (28-34); MEAN CORPUSCULAR HGB CONC 31.1 g/dL (30-36); MEAN PLATELET VOLUME 9.7 FL (6.5-11.5); RED BLOOD COUNT 3.22 X10e (3.90-5.60); RED CELL DISTRIBUTION WIDTH 17.8 % (11.0-15.5); WHITE BLOOD COUNT 21.3 X10e3 (4.0-10.5)
[2017-02-22 03:55] LABS: BUN/CREATININE RATIO 21.81; CREATININE SERUM 1.1 mg/dL (0.6-1.4); GLOM FILT RATE Estimated 65.8 mL/min (>60); MAGNESIUM 2.2 mg/dL (1.6-3.0); POTASSIUM 3.9 mmol/L (3.5-5.1)
[2017-02-22 14:47] LABS: URINE APPEARANCE CLEAR; URINE BILIRUBIN NEG (NEG); URINE BLOOD NEG (NEG); URINE COLOR DK YELLOW; URINE GLUCOSE NEG (NEG); URINE KETONE TRACE (NEG); URINE LEUKOCYTE ESTERASE NEG (NEG); URINE NITRATE NEG (NEG); URINE PH 5.5 (5-8); URINE PROTEIN TRACE (NEG); URINE SPECIFIC GRAVITY 1.026 (1.003-1.035); URINE UROBILINOGEN 0.2 MG/DL (NEG)
[2017-02-22 15:59] LABS: ARTERIAL BLD GAS O2 SATURATION 88.8 % (90.0-100.0); ARTERIAL BLOOD GAS ALLEN TEST NORMAL; ARTERIAL BLOOD GAS ART SITE LEFT RADIAL; ARTERIAL BLOOD GAS CARBOXY HB 1.3 %sat (0.0-9.0); ARTERIAL BLOOD GAS DELIVERY NASAL CANNULA; ARTERIAL BLOOD GAS HCO3 28.8 mmol/L; ARTERIAL BLOOD GAS MET HB 1.2 %sat (0.0-2.0); ARTERIAL BLOOD GAS PCO2 39.6 mmHg (35.0-45.0); ARTERIAL BLOOD GAS PO2 56.6 mmHg (80.0-100); ARTERIAL DRAW? YES
[2017-02-23 03:35] LABS: HEMATOCRIT 24.3 % (38.0-50.0); HEMOGLOBIN 7.7 gm/dL (13.0-16.0); MEAN CELL VOLUME 81.4 FL (83-96); MEAN CORPUSCULAR HGB CONC 31.9 g/dL (30-36); MEAN PLATELET VOLUME 9.5 FL (6.5-11.5); RED BLOOD COUNT 2.98 X10e (3.90-5.60); RED CELL DISTRIBUTION WIDTH 18.3 % (11.0-15.5); WHITE BLOOD COUNT 18.6 X10e3 (4.0-10.5)
[2017-02-23 03:45] LABS: BUN/CREATININE RATIO 32.5; CALCIUM SERUM 7.4 mg/dL (8.4-10.2); CREATININE SERUM 0.8 mg/dL (0.6-1.4); MAGNESIUM 2.2 mg/dL (1.6-3.0); POTASSIUM 3.6 mmol/L (3.5-5.1)
[2017-02-23 16:15] LABS: HEMATOCRIT 25.3 % (38.0-50.0); HEMOGLOBIN 7.5 gm/dL (13.0-16.0)
[2017-02-24 04:33] LABS: BASOPHIL# 0.1 X10e3 (0-0.3); BASOPHIL% 0.3 % (0-2.5); DIFF IND YES; EOSINOPHIL# 0.2 X10e3 (0-0.7); EOSINOPHIL% 1.4 % (0.0-7.0); HEMATOCRIT 29.7 % (38.0-50.0); HEMOGLOBIN 9.3 gm/dL (13.0-16.0); LYMPHOCYTE# 2.4 X10e3 (1.0-3.5); LYMPHOCYTE% 13.9 % (17.0-45.0); MEAN CELL VOLUME 82.5 FL (83-96); MEAN CORPUSCULAR HEMOGLOBIN 25.9 PG (28-34); MEAN CORPUSCULAR HGB CONC 31.4 g/dL (30-36); MEAN PLATELET VOLUME 9.9 FL (6.5-11.5); MONOCYTE# 1.7 X10e3 (0-1.0); MONOCYTE% 9.7 % (3.0-12.0); NEUTROPHIL# 13.2 X10e3 (1.5-7.1); NEUTROPHIL% 74.7 % (40-75); PLATELET COUNT 277 X10e3 (140-420); RED BLOOD COUNT 3.59 X10e (3.90-5.60); RED CELL DISTRIBUTION WIDTH 17.5 % (11.0-15.5); WHITE BLOOD COUNT 17.6 X10e3 (4.0-10.5)
[2017-02-24 04:51] LABS: BUN/CREATININE RATIO 23.75; CREATININE SERUM 0.8 mg/dL (0.6-1.4); POTASSIUM 3.5 mmol/L (3.5-5.1)
[2017-02-24 04:55] LABS: ANISOCYTOSIS MOD; HYPOCHROMIA SL; PLATELET ESTIMATE NORMAL (NORMAL)
[2017-02-24 04:56] LABS: HYPERSEGMENTED POLYS PRESENT
[2017-02-25] MEDS ORDERED: CLOPIDOGREL75 MG PO (10:33)
[2017-02-25] MEDS ORDERED: PATIENT'S PHARMACY (10:33)
[2017-02-25] MEDS ORDERED: ZOLOFT100 MG PO (10:34)
[2017-02-25] MEDS ORDERED: ULTRAM PO (10:34)
[2017-02-25] MEDS ORDERED: BYSTOLIC2.5 MG PO (10:34)
[2017-02-25] MEDS ORDERED: IRON325 MG PO (10:35)
[2017-02-25] MEDS ORDERED: LOSARTAN-HCTZ1 EAC2 PO (10:35)
[2017-02-25] MEDS ORDERED: CLONIDINE PO (10:35)
[2017-02-25] MEDS ORDERED: NORVASC PO (10:35)
[2017-04-29] MEDS ORDERED: CARDIZEM CD240 MG PO (06:25)
[2017-04-29] MEDS ORDERED: PEPCID AC20 M2 PO (06:26)
[2017-04-29] MEDS ORDERED: COLACE PO ×2 (06:27→06:29)
[2017-04-29] MEDS ORDERED: LASIX20 MG PO (06:30)
[2017-05-06] MEDS ORDERED: PULMICORT0.5 MG/21 INH ×2 (13:07→14:06)
[2017-05-06] MEDS ORDERED: RISPERDAL0.5 M1 PO (13:08)
[2017-05-06] MEDS ORDERED: BROVANA15 MCG/2 M INH (13:09)
[2017-05-06] MEDS ORDERED: FAMOTIDINE20 M1 PO (13:12)
[2017-05-06] MEDS ORDERED: PROBIOTIC250 MG PO (13:13)
[2017-05-06] MEDS ORDERED: AUGMENTIN PO (13:15)
[2017-05-06] MEDS ORDERED: PREDNISONE10 M1 PO (13:17)
[2017-05-06] MEDS ORDERED: SPIRIVA18 MCG INH ×2 (13:18→14:09)
[2017-05-06] MEDS ORDERED: ALBUTEROL17 GM INH ×3 (13:18→14:08)
[2017-05-06] MEDS ORDERED: ALBUTEROL2.5 MG/3 M NEB (13:21)
[2017-05-06] MEDS ORDERED: DELTASONE20 MG PO (14:11)
== END 2017-02-24 12:45 | DRG 469 ==
LOC: CED 14:48 → CEDOF 17:20 → CED 18:01 → CEDOF 18:01 → C4C 19:29 → CEDOF 19:29 → C4C 02-20 09:05
PROVIDERS: Family Medicine; Internal Medicine; Nurse Practitioner; Orthopaedic Surgery; Student in an Organized Health Care Education/Training Program
PROC: 30233N1 Transfusion of Nonautologous Red Blood Cells into Peripheral Vein, Percutaneous Approach (ICD-10-PCS; 2017-02-20)
PROC: B24BZZZ Ultrasonography of Heart with Aorta (ICD-10-PCS; 2017-02-20)
PROC: 0SRS0JA Replacement of Left Hip Joint, Femoral Surface with Synthetic Substitute, Uncemented, Open Approach (ICD-10-PCS; principal; 2017-02-20 15:30)
PROC: 30233N1 Transfusion of Nonautologous Red Blood Cells into Peripheral Vein, Percutaneous Approach (ICD-10-PCS; 2017-02-23)
PROC: 0DB68ZX Excision of Stomach, Via Natural or Artificial Opening Endoscopic, Diagnostic (ICD-10-PCS; 2017-02-23 14:00)
DX: M80.852A Other osteoporosis with current pathological fracture, left femur, initial encounter for fracture (principal); J96.01 Acute respiratory failure with hypoxia; F05 Delirium due to known physiological condition; E44.1 Mild protein-calorie malnutrition; D62 Acute posthemorrhagic anemia; J96.11 Chronic respiratory failure with hypoxia; W01.0XXA Fall on same level from slipping, tripping and stumbling without subsequent striking against object, initial encounter; Y92.009 Unspecified place in unspecified non-institutional (private) residence as the place of occurrence of the external cause; K29.70 Gastritis, unspecified, without bleeding; K44.9 Diaphragmatic hernia without obstruction or gangrene; K29.80 Duodenitis without bleeding; Z88.6 Allergy status to analgesic agent; Z88.2 Allergy status to sulfonamides; Z88.8 Allergy status to other drugs, medicaments and biological substances; K21.9 Gastro-esophageal reflux disease without esophagitis; D50.9 Iron deficiency anemia, unspecified; E53.8 Deficiency of other specified B group vitamins; E87.6 Hypokalemia; J44.9 Chronic obstructive pulmonary disease, unspecified; G89.29 Other chronic pain; M54.9 Dorsalgia, unspecified; F41.9 Anxiety disorder, unspecified; G47.33 Obstructive sleep apnea (adult) (pediatric); I48.0 Paroxysmal atrial fibrillation; Z79.82 Long term (current) use of aspirin; I10 Essential (primary) hypertension; Z87.891 Personal history of nicotine dependence; Z91.19 Patient's noncompliance with other medical treatment and regimen; Z99.81 Dependence on supplemental oxygen; Z88.0 Allergy status to penicillin
CPT/HCPCS: 36415; 36600; 71010; 72170; 73502; 80048; 80053; 80076; 80202; 81003; 82550; 82553; 82607; 82728; 82746; 82803; 83540; 83550; 83735; 83880; 84132; 84466; 84484; 85014; 85018; 85025; 85027; 85610; 86850; 86900; 86901; 86923; 87040; 87045; 87427; 87899; 88305; 88311; 88312; 93005; 93308; 94640; 94664; 94760; 94761; 96374; 96375; 97110; 97116; 97162; 97166; 97530; 97535; 99285; C1776; C9113; G8978-GP; G8979-GP; G8980-GP; G8987-GO; G8988-GO; J0330; J0690; J1650; J2270; J2405; J2916; J3010; J3420; J3475; P9016

== ENCOUNTER 2017-02-24 21:45 | Inpatient (IN) | payer MEDICARE, BC ==
[~2017-02-24] VITALS: Ht 182.9 cm; Wt 80.9 kg
--- NOTE | ~2017-02-24 | CO ---
Unit #: [id number] #: [id number] Patient: MC BEAR [id number] [facility] [address]. [place], [place] [address] [id number] MR#: [id number] NAME: MC BEAR. ROOM: 333 Age: 76 Sex: M Admission Date: 02/25/2017 : 1940 Attending Physician: Alondra Reis M.D. Primary Care Physician: No Primary Care Physician Requesting Physician: Alondra Reis M.D. CONSULTATION REPORT REASON FOR CONSULTATION REQUEST SVT and VT. HISTORY OF PRESENT ILLNESS Mr. Bear is a 76-year-old gentleman who was discharged from [facility] recently postoperatively, described above. We are called today for two incidents which occurred this afternoon at 1623 and 1622. At 1622, VT was seen, 10 beats in duration. This was asymptomatic. At 1623, SVT was seen, approximately 25 beats in duration. The rate of the VT was approximately 150. The rate of the SVT was slightly less than 150. I reviewed his ECG from 2300 on 02/24/17 which showed sinus rhythm and no acute ST changes. QT interval was 155 msec. He has known paroxysmal atrial fibrillation, hypertension and COPD. He stopped smoking about 20 years ago. He is noncompliant with CPAP. He was admitted to [facility] 02/19 to 02/24/17 for left femoral neck fracture and microcytic anemia. After surgery, he went to the care home. Since he was at [facility], he was given Ativan and morphine. He became somnolent and then significantly disoriented. He was given a little bit more morphine for pain and started having terrible nightmares. Although his history is suboptimal, due to lack of total orientation, he reports no angina or anginal equivalent, PND, orthopnea, syncope or presyncope. PAST MEDICAL HISTORY 1. Paroxysmal atrial fibrillation. Cardiac catheterization 2011. Minimal disease showing 30% LAD, 30 to 40% circumflex. 2. Echo earlier this month on 02/20/17 was reviewed as noninterpretable. I reviewed the images. Films are normal. LV size is upper normal. RV size is mildly enlarged and a left ventricular ejection fraction is 40 to 45% with mild RV dysfunction. Valves appeared normal. 3. COPD. 4. History of anxiety. 5. GERD. 6. Hypertension. 7. Status post left femoral neck fracture surgery, 02/24/17, discharge. 8. Osteoporosis. 9. Vitamin B12 deficiency. 10. Right inguinal hernia repair. 11. Vasectomy. 12. Appendectomy. Unit #: [id number] #: [id number] Patient: MC BEAR SOCIAL HISTORY He lives with his , most recently at [facility]. He stopped smoking 1996. No alcohol. FAMILY HISTORY Dementia. ALLERGIES Sulfa, Boniva. MEDICATIONS 1. Pulmicort. 2. ProAir. 3. Combivent. 4. Perforomist. 5. Losartan 100/25 mg daily. 6. Coumadin daily. 7. Zoloft 150 mg daily. 8. Coreg 3.125 mg b.i.d. 9. Colace 100 mg b.i.d. 10. Clonidine 0.2 mg b.i.d. 11. Iron. 12. Aspirin 81 mg daily. 13. [place]. 14. Omeprazole 40 mg daily. 15. Os-Tab. 16. Vitamin B12. 17. Ativan. 18. MiraLax. REVIEW OF SYSTEMS I do not feel this is reliable. PHYSICAL EXAMINATION GENERAL APPEARANCE: Pleasant and alert but seems agitated just lying in bed, definitely no acute distress. VITAL SIGNS: Heart rate 87and regular. Respiratory rate 18. Blood pressure 174/113 but there is extreme agitation. I reviewed the blood pressure trends and they have almost always been greater than 150 during his prior hospitalization with the exception of immediately postop when they were 115 up to 130 in general. SKIN: Warm and dry. No xanthelasma. MUSCULOSKELETAL: Status post hip surgery. NEUROLOGICAL: Agitated, not totally oriented. HEENT: Pupils equal, round and reactive. No oral cyanosis. No icterus. NECK: Carotids clear to auscultation with no carotid bruits. Normal carotid upstroke bilaterally. Thyroid is normal in size and texture without masses or tenderness. CHEST: Clear to auscultation with no rales or wheezes. Good effort. CARDIAC: Normal point of maximum impulse. Normal S1 and S2. No S3, S4 or rub. ABDOMEN: No hepatosplenomegaly, masses or tenderness. Normal bowel sounds. No abdominal bruits heard. EXTREMITIES: No clubbing, cyanosis or edema. Excellent posterior tibial and dorsalis pedis pulses. DIAGNOSTIC STUDIES LABORATORY: Creatinine 0.8, potassium 3.8, magnesium 2.0. TSH in 2011 Unit #: [id number] #: [id number] Patient: MC BEAR was normal. Hemoglobin 9.6, WBC count 17 (down from 18.6), platelet count 289,000. Urine on 02/24/17 was negative. CARDIOVASCULAR: I reviewed the ECG which showed sinus rhythm with normal QT interval. I also reviewed the SVT and VT as noted above. IMPRESSION 1. SVT and VT. 2. Paroxysmal atrial fibrillation. 3. Reduced biventricular function. EF 40 to 45%, mild RV dysfunction. 4. Tobacco abuse until 1996. 5. Hypertension. 6. Sleep disordered breathing, noncompliant with CPAP in the past. DISCUSSION AND RECOMMENDATIONS I think that the SVT and VT could easily be due to fluid overload or a residual of sleep disordered breathing but they also could represent an ischemic event. No ST change are seen currently. We will monitor for sleep disorder breathing tonight and get him on some scheduled IV Lasix to diurese him a bit. His blood pressures have been very high since returning from the care home and I wonder whether or not he has received a higher sodium diet which could trigger all of this also. He has not had a TSH since 2011 so we will check this. We will monitor troponins overnight as well as check for overnight oximetry to screen for sleep apnea. In treating the hypertension in addition to the Lasix 20 mg b.i.d., we will add Diltiazem 60 mg q.6 hours and see how this helps things. It should also calm down any SVT episodes. We will continue to follow this somewhat complicated gentleman with you. I do not think that any cardiac testing right now is necessary or indicated. He only had mild coronary disease previously. Dictated by... Luis Fernando Styles M.D. Korey TD: 02/26/2017 08:10 JOB #: [id number] CONSULTATION REPORT Page 1 of 1 X Luis Fernando Styles MD CONSULTATION REPORT
--- NOTE | ~2017-02-24 | CT71 ---
[facility] A Service of [facility] RADIOLOGY TEXT RESULTS PATIENT: MC RASHEED LOCATION: [facility] 333-01 : 42 UNIT #: [id number] AGE: [address]: Alondra Reis MD SEX: M ORDER DR: [id number] [facility]. [place], [place] [address] [id number] MR#: [id number] Acc #: [id number] NAME: MC RASHEED. : 1940 SEX: M STUDY DATE/TIME: 02/25/2017 5:11 UNIT: CEDOF ROOM: 30249 STUDY DESCRIPTION: CT Head Wo Contrast Attending Physician: Adali Burns M.D. Ordering Physician: Adali Burns M.D. Primary Care Physician: Primary Care Physician No MEDICAL IMAGING REPORT This report is preliminary unless electronic signature is present EXAM CT scan of the brain without contrast INDICATION Lethargy after fall today. Patient was uncooperative, unresponsive, and the study is degraded by motion. FINDINGS Axial images were obtained through the brain. This CT examination was performed with one or more of the following radiation dose reduction techniques: automatic exposure control, adjustment of mA and/or kV according to patient size, and iterative reconstruction. There is motion degradation but there is no mass or extraaxial fluid collections. The lower half of the posterior fossa is not included. IMPRESSION The patient was unable to cooperate and the lower half of the cerebellum is not included on this study. The study is degraded by motion. No abnormalities are identified. Dictated by... Ronal Lal M.D. THIS IS AN ELECTRONICALLY VERIFIED REPORT Ronal Lal M.D. at 02/25/2017 3:09 PM LEANNE/diana TD: 02/25/2017 06:36 JOB #: [id number] [facility] A Service [facility] RADIOLOGY TEXT RESULTS PATIENT: MC RASHEED LOCATION: [facility] 333-01 : 42 UNIT #: [id number] AGE: [address]: Alondra Reis MD SEX: M ORDER DR: MEDICAL IMAGING REPORT Page 1 of 1 COPY
--- NOTE | ~2017-02-24 | CR72 ---
[facility] A Service of [facility] RADIOLOGY TEXT RESULTS PATIENT: MC RASHEED LOCATION: [facility] 333- : 42 UNIT #: [id number] AGE: [address]: Alondra Reis MD SEX: M ORDER DR: [id number] [facility] [address] [facility]. [place], [place] [address] [id number] I MR#: [id number] Acc #: [id number] NAME: MC RASHEED. : 1940 SEX: M STUDY DATE/TIME: 02/25/2017 12:03 UNIT: [address] ROOM: [facility] STUDY DESCRIPTION: CR Chest Single View Portable Attending Physician: Alondra Reis M.D. Ordering Physician: Adali Burns M.D. Primary Care Physician: No Primary Care Physician MEDICAL IMAGING REPORT This report is preliminary unless electronic signature is present EXAM Chest, portable, 02/25/2017, 1203 hours. CLINICAL HISTORY 76-year-old man with shortness of air for 3 weeks. Evaluate for aspiration pneumonia. History of hypertension. COMPARISON 02/24/2017 FINDINGS Portable upright chest demonstrates mild cardiomegaly and tortuous aorta without change. There is emphysematous change with mild interstitial prominence, unchanged. There is plate-like density at the right lung base most likely representing atelectasis. No airspace changes are seen. IMPRESSION 1. Stable cardiomegaly, tortuous aorta, emphysematous and interstitial changes in the lungs. 2. Stable slightly nodular left apical pleural thickening. 3. There is increase in plate-like density at the right lung base just above the right hemidiaphragm most suggestive of atelectasis. Dictated by... Mora Cortes M.D. THIS IS AN ELECTRONICALLY VERIFIED REPORT Mora Cortes M.D. at 02/25/2017 2:30 PM FAITH/melanie TD: 02/25/2017 13:39 [facility] A Service of [facility] RADIOLOGY TEXT RESULTS PATIENT: MC RASHEED LOCATION: [facility] 333-01 : 42 UNIT #: [id number] AGE: [address]: Alondra Reis MD SEX: M ORDER DR: JOB #: [id number] MEDICAL IMAGING REPORT Page 1 of 1 COPY
--- NOTE | ~2017-02-24 | DS ---
Unit #: [id number] #: [id number] Patient: MC RASHEED [id number] [address] [address] [id number] I MR#: [id number] NAME: MC RASHEED ROOM: 333 Age: 76 Sex: M Admission Date: 02/25/2017 : 1940 Discharge Date: 02/27/2017 Attending Physician: Alondra Reis M.D. Primary Care Physician: No Primary Care Physician DISCHARGE SUMMARY PRINCIPAL DIAGNOSES 1. Toxic metabolic encephalopathy, multifactorial. 2. 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 3. Urinary tract infection with pending urine culture. 4. Nonsustained ventricular tachycardia, now resolved. 5. Supraventricular tachycardia, now resolved. 6. Recent left hip fracture status post left hip hemiarthroplasty. 7. Paroxysmal atrial fibrillation currently maintained in normal sinus rhythm and on Lovenox with initiation of Coumadin therapy and rate control. 8. Iron deficiency anemia with stable discharge hemoglobin of 10.4. 9. Leukocytosis secondary to urinary tract infection plus/minus reactive. 10. Hypertension. 11. Chronic hypoxic respiratory failure maintained on two to three liters of oxygen per nasal cannula continuously. 12. Vitamin B12 deficiency. 13. Chronic obstructive pulmonary disease. 14. Obstructive sleep apnea noncompliant with CPAP. 15. Chronic back pain. 16. Osteoporosis. 17. Gastritis. 18. Duodenitis. 19. Anxiety. 20. Severe physical deconditioning. 21. Mild protein malnutrition. 22. Chronic systolic congestive heart failure with an ejection fraction of 40%. CONSULTANTS 1. Dr. Styles, Cardiology. 2. Dr. Terrazas, Orthopaedic Surgery. PROCEDURES 1. CT of the head without contrast, on February 25, 2017, without any acute abnormalities. 2. X-ray of pelvis, on February 25, 2017, with no visible fracture. Left hip prosthesis noted. 3. Chest x-ray, on February 25, 2017, with cardiomegaly, tortuous aorta, emphysematous and interstitial changes noted. Apical pleural thickening noted. Right basilar atelectasis noted. 4. Bilateral extremity venous Doppler which is negative for DVT. CLINICAL HISTORY AND HOSPITAL COURSE Mr. Rasheed is a 76-year-old male discharged from this facility Unit #: [id number] #: [id number] Patient: MC RASHEED on February 24, after a five day stay with a left hip fracture, anemia, AFib and sundowning. The patient went to the rehab facility the evening of the but mental status change and he was brought back to the ER. Workup in the ER was essentially unremarkable but the patient was mildly tachypneic, still confused and subsequently admitted. In regards to patient's confusion, as noted above, the patient had sundowning every night of his last hospitalization. I discussed this with the family and they wished to have medications ingested as he was taking at home prior to his initial hospitalization. This was done. However, the patient continues to have sundowning with behavioral disturbance at night. I have discussed with the patient's that this is sundowning with behavioral disturbance and we are going to treat it with Risperdal. Urinalysis today is concerning for UTI, which was not present last admission. I am going to give him a gram of Rocephin and we will follow up urine culture in addition to placing him on oral antibiotics upon discharge. The patient had paroxysmal atrial fibrillation last hospitalization. However, he had V-tach, asymptomatic, and nonsustained during this hospitalization. For this, Dr. Styles evaluated the patient and medication adjustments were made. The patient underwent sleep study which was abnormal and the patient has known obstructive sleep apnea. He will need outpatient polysomnography. The patient did climb out of bed in his delirium and fell on his left hip. Repeat x-rays were negative and the plan is just weightbearing as tolerated with physical therapy and close follow up with Dr. Terrazas. The patient is being maintained on DVT dosed Lovenox until his Coumadin his therapeutic due to his atrial fibrillation, at which time, Lovenox can be discontinued. He can be discharged to rehab today and, again, I will place him on Risperdal. DISCHARGE CONDITION Stable. DISCHARGE STATUS Discharge to rehab. DISCHARGE MEDICATIONS 1. Combivent nebulizer treatment 3 mL four times daily. 2. Pulmicort nebulizer solution 0.5 mg/2 mL, 2 mL inhaled twice daily. 3. Perforomist 20 mcg inhaled b.i.d. 4. Lovenox 40 mg subcutaneously q.24 hours to stop when INR is greater than or equal to 2.0. 5. Coumadin 3 mg daily. 6. Zoloft 150 mg daily. 7. Coreg 3.25 mg p.o. b.i.d. 8. Cardizem CD 240 mg daily. 9. Colace 100 mg b.i.d. 10. Lasix 20 mg p.o. b.i.d. 11. Clonidine 0.2 mg b.i.d. 12. Cozaar 25 mg b.i.d. 13. Ferrous gluconate 324 mg b.i.d. 14. Tramadol 50 mg p.o. q.6 hours p.r.n. for pain. 15. Risperdal 0.5 mg one tab p.o. q.h.s. 16. Omnicef 300 mg p.o. b.i.d. x6 days. Dose of Omnicef will begin on February 28, 2017. DISCHARGE INSTRUCTIONS Unit #: [id number] #: [id number] Patient: MC RASHEED 1. The patient was instructed to follow a Heart Healthy diet. 2. He is to wear his oxygen at two liters per nasal cannula continuously at all times. 3. He can increase his activity as tolerated per (1) care Physical and Occupational Therapy and he is weightbearing as tolerated on the left lower extremity. 4. Daily dressing changes to left hip incision. FOLLOWUP 1. The patient should have followup INR done on February 28, 2017 with goal INR of 2 to 3. He needs discontinuation of Lovenox when INR is at goal. 2. He will follow up with Dr. Terrazas in approximately one week. 3. He will follow up with Dr. Styles in three to four weeks. 4. He still has followup with Dr. Parker as dictated during last hospitalization in four to six weeks for outpatient colonoscopy. 5. He will need outpatient polysomnography done as well. Time spent on discharge-37 minutes. Dictated by... Alondra Reis M.D. Aleyda TD: 02/27/2017 13:23 JOB #: [id number] DISCHARGE SUMMARY Page 1 of 1 X Alondra Reis MD X DISCHARGE SUMMARY
--- NOTE | ~2017-02-24 | CR206 ---
[facility] A Service of [facility] RADIOLOGY TEXT RESULTS PATIENT: MC RASHEED LOCATION: [facility] 333-01 : 42 UNIT #: [id number] AGE: [address]: Alondra Reis MD SEX: M ORDER DR: [id number] [facility] [address] [facility]. [place], [place] [address] [id number] I MR#: [id number] Acc #: [id number] NAME: MC RASHEED. : 1940 SEX: M STUDY DATE/TIME: 02/25/2017 5:20 UNIT: CEDOF ROOM: [facility] STUDY DESCRIPTION: CR Pelvis 1 or 2 Views Attending Physician: Adali Burns M.D. Ordering Physician: Adali Burns M.D. Primary Care Physician: Primary Care Physician No MEDICAL IMAGING REPORT This report is preliminary unless electronic signature is present EXAM AP pelvis INDICATION Fell out of bed in the ER tonight with pelvic pain. Previous left hip replacement. FINDINGS An AP view of the pelvis was obtained. No fracture is visible. There is no dislocation. There is a left total hip prosthesis present. IMPRESSION No visible fracture. This AP view of the pelvis shows a left hip prosthesis which is not clearly included on this examination. Dictated by... Ronal Lal M.D. THIS IS AN ELECTRONICALLY VERIFIED REPORT Ronal Lal M.D. at 02/25/2017 3:09 PM LEANNE/diana TD: 02/25/2017 06:29 JOB #: [id number] MEDICAL IMAGING REPORT Page 1 of 1 COPY
--- NOTE | ~2017-02-24 | HP ---
Unit #: [id number] #: [id number] Patient: MC RASHEED [id number] [address] [place], [place] [address] [id number] I MR#: [id number] NAME: MC RASHEED. ROOM: 56187 Age: 76 Sex: M Admission Date: 02/25/2017 : 1940 Attending Physician: Alondra Reis M.D. Primary Care Physician: No Primary Care Physician HISTORY AND PHYSICAL CHIEF COMPLAINT Confusion, agitation. HISTORY This 76-year-old male, with paroxysmal atrial fibrillation, hypertension and COPD, is admitted for confusion and agitation. The patient was admitted to this facility 02/19 through 02/24/2017 for a left femoral neck fracture. Was noted to have microcytic anemia. He underwent ORIF of the left hip fracture and underwent EGD revealing gastritis, duodenitis. Did require transfusion during his hospitalization. In the evening he was noted intermittently to become agitated and was thought to have some sundowning. He was sent to [facility] yesterday, and a low dose of Ativan was added for agitation q.h.s. Family states that, when he arrived at [facility], he was extremely somnolent. He was hypertensive, as well. Therefore, he was sent back to this facility late last evening. While in the emergency department, he complained of hip pain, was given Ultram. He then later became quite agitated and was quite confused. He was given 0.5 mg of IV Ativan and later 1 mg of IV Ativan. Family left his room, and the patient climbed over the bed rails and fell onto the floor. As I am seeing him, he is quite confused. He does have some gurgling respirations and sound as if he needs to be suctioned. He is also diaphoretic. His labs are improved from his discharge yesterday. Chest x-ray shows no acute disease. PAST MEDICAL HISTORY 1. Paroxysmal atrial fibrillation. Cardiac catheterization in 2011 revealed a 30% LAD lesion and 30% to 40% left circumflex lesion with normal ejection fraction. 2. Essential hypertension. 3. GERD. 4. History of anxiety. 5. COPD, on 2 liters of oxygen. 6. Obstructive sleep apnea, apparently noncompliant with CPAP. 7. Admission 02/19 through 02/24/2017 for fall with left femoral neck fracture requiring ORIF. The patient was seen in consultation by cardiology and also by Dr. Parker. Dr. Parker saw the patient for microcytic anemia. EGD was performed for severe iron deficiency anemia revealing small hiatal hernia, mild gastritis and mild duodenitis. Plans are for a colonoscopy when okay with orthopedic Unit #: [id number] #: [id number] Patient: MC RASHEED surgery. 8. Osteoporosis. 9. Vitamin B12 deficiency. 10. Right inguinal hernia repair. 11. Appendectomy. 12. Vasectomy. ALLERGIES Sulfa, Boniva, possibly to ibuprofen. MEDICINES (at time of discharge yesterday) 1. ProAir 1 puff q.i.d. p.r.n. 2. Combivent nebulizer q.6 hours as needed. 3. Pulmicort 0.5 mg nebulizer b.i.d. 4. Perforomist 20 mcg nebulized b.i.d. 5. Losartan/HCTZ 100/25 daily. 6. Coumadin 2 mg daily. 7. The patient was placed on low-dose Lovenox 40 mg daily until INR was therapeutic. 8. Zoloft 150 mg daily. 9. Coreg 3.125 mg b.i.d. 10. Colace 100 mg b.i.d. 11. Clonidine 0.2 mg b.i.d. 12. Iron sulfate 325 mg b.i.d. 13. Aspirin 81 mg daily, which can be initiated after INR is greater than or equal to 2. 14. Reliance 5/325 mg q.6 hours as needed for pain. 15. Omeprazole 40 mg daily. 16. Os-Tab 500 mg b.i.d. 17. Vitamin B12 - 1,000 mcg daily. 18. Ativan 0.5 mg q.h.s. 19. MiraLAX p.r.n. FAMILY HISTORY Dementia. SOCIAL HISTORY The patient was living with his . He stopped smoking 20 years ago. Does not drink alcohol. REVIEW OF SYSTEMS Review of systems is difficult to obtain, as the patient is quite confused. PHYSICAL EXAMINATION GENERAL: Confused, somnolent 76-year-old male with gurgling respirations. Needs to be suctioned. VITAL SIGNS: Temperature 98.6, pulse 100, respirations 20, blood pressure 150/85, O2 saturation currently 95% to 96% on 3 liters of oxygen. HEENT: Eyes-PERRLA. Pharynx is benign. NECK: Supple without adenopathy or thyromegaly. CHEST: Reveals rhonchi and upper airway gurgles. CARDIAC: Normal S1, S2, without definite murmur. ABDOMEN: Bowel sounds are present. No hepatosplenomegaly, tenderness or masses. EXTREMITIES: Without edema. Pedal pulses are markedly diminished. SKIN: Left hip incision looks to be clean and dry with ecchymosis around the area. Unit #: [id number] #: [id number] Patient: MC RASHEED NEUROLOGIC EXAMINATION: The patient is somnolent after receiving Ativan, but when awoken, he is a bit agitated and moving all of his extremities. He does know his name. His cranial nerves look to be intact. DIAGNOSTIC STUDIES ADMISSION LABS: Hematocrit is 30.6, which is improved. White blood count is 15.9, which is improved. MCV is 82.8. Normal platelet count. Coags normal. SMA-12 - Chloride is 99, calcium is 7.9, albumin is 2.7. Cardiac markers are negative. Urinalysis is negative. IMAGING: Chest x-ray - No acute disease. CARDIOVASCULAR: EKG shows sinus rhythm with PACs, heart rate 83, poor R wave progression. Q waves noted inferiorly. Inferior Q waves noted previously. ASSESSMENT 1. The patient was lethargic at the longterm, and he was sent back. He then became agitated, confused, was given Ativan. Fell out of the bed in the ER. 2. Recent left hip ORIF. 3. Microcytic anemia, which is stable. 4. Rule out aspiration. The patient does have some gurgling respirations. Does have a history of COPD with chronic respiratory failure, on home oxygen. Currently chest x-ray is negative. 5. Paroxysmal atrial fibrillation, currently in sinus rhythm. 6. Essential hypertension. 7. Gastritis. PLANS 1. Head CT. 2. X-rays of the pelvis. 3. One dose of Zosyn pending repeat chest x-ray this morning. Will ask for p.r.n. suctioning, along with bronchodilators. 4. IV fluids and supportive treatment. 5. Change medications to an alternate route until able to take p.o. 6. Will discontinue Ativan, as the patient seemed to get worse in the ER after Ativan. Will give low-dose Haldol if needed. 7. Further workup and consultants depending on above. Dictated by Adali Burns M.D. AML/db TD: 02/25/2017 08:20 JOB #: [id number] CC: [facility] Unit #: [id number] #: [id number] Patient: MC RASHEED Ken HISTORY AND PHYSICAL Page 1 of 1 X Adali Burns MD X HISTORY AND PHYSICAL
--- NOTE | ~2017-02-24 | EKG ---
PATIENT: MC RASHEED UNIT #: [id number] Ventricular Rate: 83 BPM Atrial Rate: 83 BPM P-R Interval: 154 ms QRS Duration: 90 ms Q-T Interval: 388 ms QTC Calculation(Bezet): 455 ms P Polk: 40 degrees Calculated R Polk: -89 degrees Calculated T Polk: 10 degrees Diagnosis Line: Sinus rhythm with marked sinus arrhythmia pacs Diagnosis Line: Left axis deviation Diagnosis Line: Low voltage QRS Diagnosis Line: Inferior infarct (cited on or before 19-DEC-2011) Diagnosis Line: Cannot rule out Anterior infarct (cited on or Diagnosis Line: before 19-DEC-2011) Diagnosis Line: Abnormal ECG Diagnosis Line: Diagnosis Line: Confirmed by LORI ANDRES MD ([id number]) on Diagnosis Line: 02/26/2017 10:33:20 AM INTERPRETING MD: DMITRY CLEMENTE
--- NOTE | ~2017-02-24 | CR63 ---
[facility] A Service of [facility] & [facility] RADIOLOGY TEXT RESULTS PATIENT: MC RASHEED LOCATION: [facility] 333- : 42 UNIT #: [id number] AGE: [address]: Alondra Reis MD SEX: M ORDER DR: [id number] [facility] [address] [facility]. [place], [place] [address] [id number] I MR#: [id number] Acc #: [id number] NAME: MC RASHEED. : 1940 SEX: M STUDY DATE/TIME: 02/27/2017 8:32 UNIT: [address] ROOM: [facility] STUDY DESCRIPTION: CR Chest 2 View Attending Physician: Alondra Reis M.D. Ordering Physician: Alondra Reis M.D. MEDICAL IMAGING REPORT This report is preliminary unless electronic signature is present EXAM Chest 02/27/2017 HISTORY 76-year-old male patient cough, short of air 1 month duration. Patient very drowsy. Short of breath. Past smoker with history of high blood pressure and COPD. COMPARISON STUDIES Chest 02/25/2017. FINDINGS Two-view chest exam demonstrates mild cardiac enlargement with left ventricular prominence. Aorta and hilar structures appear normal. There is infiltrate present in the right lower lobe posteriorly. Generalized demineralization with mild compression and anterior wedging of several thoracic vertebrae. IMPRESSION 1. Mild cardiomegaly with left ventricular stress configuration. 2. Right lower lobe pneumonia. 3. Generalized demineralization with mild compression and anterior wedging of several thoracic vertebrae. Dictated by... Vineet Palmer M.D. THIS IS AN ELECTRONICALLY VERIFIED REPORT Vineet Palmer M.D. at 02/27/2017 4:57 PM MARIAELENA/berenice [facility] A Service of [facility] & [facility] RADIOLOGY TEXT RESULTS PATIENT: MC RASHEED LOCATION: [facility] 333- : 42 UNIT #: [id number] AGE: [address]: Alondra Reis MD SEX: M ORDER DR: TD: 02/27/2017 15:48 JOB #: [id number] MEDICAL IMAGING REPORT Page 1 of 1 COPY
--- NOTE | ~2017-02-24 | US84 ---
[id number] [facility] [address] [place], [place] [address] [id number] I MR#: [id number] Acc #: [id number] NAME: MC RASHEED : 1940 SEX: M STUDY DATE/TIME: 02/26/2017 18:26 UNIT: C3A PCU [facility] STUDY DESCRIPTION: US LE Veins Complete Sharath Stdy Attending Physician: Alondra Reis M.D. Ordering Physician: Alondra Reis M.D. Primary Care Physician: Primary Care Physician No MEDICAL IMAGING REPORT This report is preliminary unless electronic signature is present EXAM Bilateral lower extremity venous duplex, 02/26/2017 HISTORY Bilateral lower extremity edema and pain for 1 day, left greater than right. Evaluate for deep vein thrombosis. TECHNIQUE Venous ultrasound examination of both lower extremities was performed using grayscale, spectral Doppler and color flow Doppler imaging. FINDINGS The examination is negative. There is no evidence of deep venous thrombus from the groin to the lower calf bilaterally. Visualized greater saphenous veins are also patent. IMPRESSION Negative examination. No evidence of lower extremity deep venous thrombosis. Dictated by... Shaheed Rosario M.D. THIS IS AN ELECTRONICALLY VERIFIED REPORT Shaheed Rosario M.D. at 02/27/2017 7:22 AM TRACEE/checo TD: 02/27/2017 00:50 JOB #: [id number] MEDICAL IMAGING REPORT Page 1 of 1 COPY
--- NOTE | ~2017-02-24 | CR106 ---
[facility] A Service of [facility] & [facility] RADIOLOGY TEXT RESULTS PATIENT: MC RASHEED LOCATION: [facility] 333-01 : 42 UNIT #: [id number] AGE: [address]: Alondra Reis MD SEX: M ORDER DR: [id number] [address] [place], [place] [address] [id number] I MR#: [id number] Acc #: [id number] NAME: MC RASHEED. : 1940 SEX: M STUDY DATE/TIME: 02/25/2017 20:24 UNIT: [address] ROOM: [facility] STUDY DESCRIPTION: CR Femur 2 Views Lt Attending Physician: Alondra Reis M.D. Ordering Physician: [facility] MEDICAL IMAGING REPORT This report is preliminary unless electronic signature is present EXAM Left femur HISTORY Left femur pain after fall. Previous left hip replacement. FINDINGS AP and lateral views of the left femur were obtained. There is left hip prosthesis present. There is no fracture identified. The bones are unremarkable, otherwise. IMPRESSION Previous left hip replacement, otherwise normal. Dictated by... Ronal Lal M.D. THIS IS AN ELECTRONICALLY VERIFIED REPORT Ronal Lal M.D. at 02/26/2017 5:54 AM FEL/pcl TD: 02/25/2017 22:58 JOB #: [id number] MEDICAL IMAGING REPORT Page 1 of 1 COPY
--- NOTE | ~2017-02-24 | CR72 ---
[facility] A Service of [facility] & [facility] RADIOLOGY TEXT RESULTS PATIENT: MC RASHEED LOCATION: [facility] [id number] : 42 UNIT #: [id number] AGE: [address]: Alondra Reis MD SEX: M ORDER DR: [id number] [facility] [address] [place], [place] [address] [id number] E MR#: [id number] Acc #: [id number] NAME: MC RASHEED. : 1940 SEX: M STUDY DATE/TIME: 02/24/2017 22:51 UNIT: [facility] ROOM: STUDY DESCRIPTION: CR Chest Single View Portable Attending Physician: Adolfo Cruz M.D. Ordering Physician: Ed Adrian Valderrama M.D. Primary Care Physician: Primary Care Physician No MEDICAL IMAGING REPORT This report is preliminary unless electronic signature is present EXAM Portable chest, 02/24/2017 HISTORY Shortness of breath for 3 weeks. Benign essential hypertension. FINDINGS The heart is enlarged but stable compared with 02/22/2017. Lungs are hyperinflated with emphysematous and fibrotic changes characteristic of COPD. Elevation right hemidiaphragm with atelectasis or fibrosis right base. Lungs are otherwise clear. There are no pleural effusions. IMPRESSION COPD and cardiomegaly. No active pulmonary disease. Dictated by... Shaheed Rosario M.D. THIS IS AN ELECTRONICALLY VERIFIED REPORT Shaheed Rosario M.D. at 02/25/2017 2:19 PM KRT/demar TD: 02/25/2017 02:23 JOB #: [id number] MEDICAL IMAGING REPORT Page 1 of 1 COPY
--- NOTE | ~2017-02-24 | EKG ---
PATIENT: MC RASHEED UNIT #: [id number] Ventricular Rate: 77 BPM Atrial Rate: 77 BPM P-R Interval: 160 ms QRS Duration: 88 ms Q-T Interval: 424 ms QTC Calculation(Bezet): 479 ms P [place]: 75 degrees Calculated R [place]: -54 degrees Calculated T [place]: 32 degrees Diagnosis Line: Normal sinus rhythm Diagnosis Line: Left axis deviation Diagnosis Line: Inferior infarct (cited on or before 19-DEC-2011) Diagnosis Line: Abnormal ECG Diagnosis Line: When compared with ECG of 24-FEB-2017 23:00, Diagnosis Line: (unconfirmed) Diagnosis Line: Minimal criteria for Anterior infarct are no Diagnosis Line: longer Present Diagnosis Line: Confirmed by TAYLOR MCKEON MD ([id number]) on Diagnosis Line: 02/27/2017 9:02:41 AM INTERPRETING MD: MIKE CLEMENTE
[~2017-02-24 21:45] MED LIST changes: +FERRO-TIME325 MG PO; +OMEPRAZOLE40 M1 PO
[2017-02-24 23:45] LABS: POC - CKMB 4.2 ng/mL (0.0-7.9); POC - TROPONIN <0.05 ng/mL (<=0.05)
[2017-02-25 00:22] LABS: BASOPHIL% 0.3 % (0-2.5); EOSINOPHIL# 0.2 X10e3 (0-0.7); EOSINOPHIL% 1.3 % (0.0-7.0); HEMATOCRIT 30.6 % (38.0-50.0); HEMOGLOBIN 9.7 gm/dL (13.0-16.0); LYMPHOCYTE# 2.3 X10e3 (1.0-3.5); LYMPHOCYTE% 14.2 % (17.0-45.0); MEAN CELL VOLUME 82.8 FL (83-96); MEAN CORPUSCULAR HEMOGLOBIN 26.1 PG (28-34); MEAN CORPUSCULAR HGB CONC 31.5 g/dL (30-36); MEAN PLATELET VOLUME 9.8 FL (6.5-11.5); MONOCYTE# 1.6 X10e3 (0-1.0); NEUTROPHIL# 11.8 X10e3 (1.5-7.1); NEUTROPHIL% 74.2 % (40-75); PLATELET COUNT 283 X10e3 (140-420); RED CELL DISTRIBUTION WIDTH 17.8 % (11.0-15.5); WHITE BLOOD COUNT 15.9 X10e3 (4.0-10.5)
[2017-02-25 00:23] LABS: DIFF IND YES
[2017-02-25 00:43] LABS: INR 1.1; PARTIAL THROMBOPLASTIN TIME 34.5 SECONDS (23.5-31.3); PROTHROMBIN TIME (PATIENT) 12.3 SECONDS (10.0-11.7)
[2017-02-25 00:57] LABS: ALBUMIN SERUM 2.7 g/dL (3.5-5.0); BILIRUBIN, DIRECT 0.2 mg/dL (0.0-0.2); BILIRUBIN,INDIRECT 1.1 mg/dL (0.0-0.9); BILIRUBIN,TOTAL 1.3 mg/dL (0.2-2.0); BUN/CREATININE RATIO 26.66; CALCIUM SERUM 7.9 mg/dL (8.4-10.2); CREATININE SERUM 0.6 mg/dL (0.6-1.4); GLOM FILT RATE Estimated 99.1 mL/min (>60); POTASSIUM 3.5 mmol/L (3.5-5.1); PROTEIN TOTAL SERUM 6.4 g/dL (6.0-8.3)
[2017-02-25 01:02] LABS: URINE SOURCE CLEAN CATCH
[2017-02-25 01:05] LABS: ANISOCYTOSIS MOD; PLATELET ESTIMATE NORMAL (NORMAL)
[2017-02-25 01:06] LABS: HYPOCHROMIA SL; OVALOCYTES PRESENT; POIKILOCYTOSIS SL; STOMATOCYTE PRESENT
[2017-02-25 01:25] LABS: URINE APPEARANCE CLEAR; URINE BILIRUBIN NEG (NEG); URINE BLOOD NEG (NEG); URINE COLOR YELLOW; URINE GLUCOSE NEG (NEG); URINE KETONE NEG (NEG); URINE LEUKOCYTE ESTERASE NEG (NEG); URINE NITRATE NEG (NEG); URINE PROTEIN NEG (NEG); URINE SPECIFIC GRAVITY 1.013 (1.003-1.035)
[2017-02-25 01:29] LABS: CULTURE INDICATED? NO
[2017-02-25 05:55] LABS: BASOPHIL% 0.2 % (0-2.5); EOSINOPHIL# 0.1 X10e3 (0-0.7); EOSINOPHIL% 0.8 % (0.0-7.0); HEMOGLOBIN 9.6 gm/dL (13.0-16.0); LYMPHOCYTE# 2.1 X10e3 (1.0-3.5); LYMPHOCYTE% 12.6 % (17.0-45.0); MEAN CELL VOLUME 82.6 FL (83-96); MEAN CORPUSCULAR HEMOGLOBIN 26.3 PG (28-34); MEAN CORPUSCULAR HGB CONC 31.8 g/dL (30-36); MEAN PLATELET VOLUME 9.3 FL (6.5-11.5); MONOCYTE# 1.8 X10e3 (0-1.0); MONOCYTE% 10.7 % (3.0-12.0); NEUTROPHIL# 12.9 X10e3 (1.5-7.1); NEUTROPHIL% 75.7 % (40-75); PLATELET COUNT 289 X10e3 (140-420); RED BLOOD COUNT 3.64 X10e (3.90-5.60)
[2017-02-25 05:57] LABS: DIFF IND YES
[2017-02-25 06:20] LABS: BUN/CREATININE RATIO 17.5; CREATININE SERUM 0.8 mg/dL (0.6-1.4); POTASSIUM 3.8 mmol/L (3.5-5.1)
[2017-02-25 06:48] LABS: %MB 2.7 % (0.0-4.0)
[2017-02-25 06:52] LABS: ANISOCYTOSIS SL; HYPOCHROMIA SL; PLATELET ESTIMATE NORMAL (NORMAL); POIKILOCYTOSIS SL
[2017-02-25 10:17] LABS: ARTERIAL BLD GAS O2 SATURATION 91.8 % (90.0-100.0); ARTERIAL BLOOD GAS ART SITE RIGHT RADIAL; ARTERIAL BLOOD GAS CARBOXY HB 1.4 %sat (0.0-9.0); ARTERIAL BLOOD GAS HCO3 29.8 mmol/L; ARTERIAL BLOOD GAS PCO2 37.1 mmHg (35.0-45.0); ARTERIAL BLOOD GAS PO2 62.1 mmHg (80.0-100); ARTERIAL BLOOD GAS pH 7.514 (7.350-7.450); ARTERIAL DRAW? YES
[2017-02-25 10:18] LABS: ARTERIAL BLOOD GAS DELIVERY NASAL CANNULA
[2017-02-25] MEDS ORDERED: CLOPIDOGREL75 MG PO (10:33)
[2017-02-25] MEDS ORDERED: PATIENT'S PHARMACY (10:33)
[2017-02-25] MEDS ORDERED: ULTRAM PO (10:34)
[2017-02-25] MEDS ORDERED: BYSTOLIC2.5 MG PO (10:34)
[2017-02-25] MEDS ORDERED: ZOLOFT100 MG PO (10:34)
[2017-02-25] MEDS ORDERED: NORVASC PO (10:35)
[2017-02-25] MEDS ORDERED: LOSARTAN-HCTZ1 EAC2 PO (10:35)
[2017-02-25] MEDS ORDERED: IRON325 MG PO (10:35)
[2017-02-25] MEDS ORDERED: CLONIDINE PO (10:35)
[2017-02-25 12:58] LABS: %MB 2.8 % (0.0-4.0); MB 6.2 ng/ml
[2017-02-26 06:08] LABS: HEMATOCRIT 35.5 % (38.0-50.0); MEAN CELL VOLUME 84.5 FL (83-96); MEAN CORPUSCULAR HEMOGLOBIN 26.2 PG (28-34); MEAN PLATELET VOLUME 9.8 FL (6.5-11.5); RED BLOOD COUNT 4.2 X10e (3.90-5.60); RED CELL DISTRIBUTION WIDTH 17.6 % (11.0-15.5); WHITE BLOOD COUNT 24.5 X10e3 (4.0-10.5)
[2017-02-26 06:17] LABS: INR 1.2; PROTHROMBIN TIME (PATIENT) 13.4 SECONDS (10.0-11.7)
[2017-02-26 06:51] LABS: BUN/CREATININE RATIO 17.77; CALCIUM SERUM 8.7 mg/dL (8.4-10.2); CREATININE SERUM 0.9 mg/dL (0.6-1.4); GLOM FILT RATE Estimated 83.8 mL/min (>60); MAGNESIUM 1.9 mg/dL (1.6-3.0)
[2017-02-26 20:03] LABS: URINE APPEARANCE CLEAR; URINE BILIRUBIN NEG (NEG); URINE BLOOD NEG (NEG); URINE COLOR YELLOW; URINE GLUCOSE NEG (NEG); URINE KETONE TRACE (NEG); URINE LEUKOCYTE ESTERASE TRACE (NEG); URINE NITRATE POS (NEG); URINE PROTEIN NEG (NEG); URINE SPECIFIC GRAVITY 1.016 (1.003-1.035); URINE UROBILINOGEN 0.2 MG/DL (NEG)
[2017-02-26 20:06] LABS: CULTURE INDICATED? YES; URBCS1 AUWI 0-2 /[HPF] (0-2); URINE BACTERIA AUWI 4+ (NEGATIVE); URINE SQUAMOUS EPITHELIAL CELL OCC /[HPF]; UWBCS1 AUWI 0-2 (0-5)
[2017-02-27 06:09] LABS: INR 1.4; PROTHROMBIN TIME (PATIENT) 14.9 SECONDS (10.0-11.7)
[2017-02-27 06:14] LABS: HEMATOCRIT 32.8 % (38.0-50.0); HEMOGLOBIN 10.4 gm/dL (13.0-16.0); MEAN CELL VOLUME 83.7 FL (83-96); MEAN CORPUSCULAR HEMOGLOBIN 26.5 PG (28-34); MEAN CORPUSCULAR HGB CONC 31.7 g/dL (30-36); MEAN PLATELET VOLUME 9.9 FL (6.5-11.5); RED BLOOD COUNT 3.91 X10e (3.90-5.60); RED CELL DISTRIBUTION WIDTH 18.6 % (11.0-15.5); WHITE BLOOD COUNT 20.5 X10e3 (4.0-10.5)
[2017-04-29] MEDS ORDERED: CARDIZEM CD240 MG PO (06:25)
[2017-04-29] MEDS ORDERED: PEPCID AC20 M2 PO (06:26)
[2017-04-29] MEDS ORDERED: COLACE PO ×2 (06:27→06:29)
[2017-04-29] MEDS ORDERED: LASIX20 MG PO (06:30)
[2017-05-06] MEDS ORDERED: PULMICORT0.5 MG/21 INH ×2 (13:07→14:06)
[2017-05-06] MEDS ORDERED: RISPERDAL0.5 M1 PO (13:08)
[2017-05-06] MEDS ORDERED: BROVANA15 MCG/2 M INH (13:09)
[2017-05-06] MEDS ORDERED: FAMOTIDINE20 M1 PO (13:12)
[2017-05-06] MEDS ORDERED: PROBIOTIC250 MG PO (13:13)
[2017-05-06] MEDS ORDERED: AUGMENTIN PO (13:15)
[2017-05-06] MEDS ORDERED: PREDNISONE10 M1 PO (13:17)
[2017-05-06] MEDS ORDERED: ALBUTEROL17 GM INH ×3 (13:18→14:08)
[2017-05-06] MEDS ORDERED: SPIRIVA18 MCG INH ×2 (13:18→14:09)
[2017-05-06] MEDS ORDERED: ALBUTEROL2.5 MG/3 M NEB (13:21)
[2017-05-06] MEDS ORDERED: DELTASONE20 MG PO (14:11)
== END 2017-02-28 01:51 | DRG 92 ==
LOC: CED 21:45 → CEDOF 02-25 04:30 → C3A PCU 02-25 04:30 → CEDOF 02-25 06:48 → C3A PCU 02-25 11:16
PROVIDERS: Emergency Medicine; Internal Medicine
DX: G92 Toxic encephalopathy (principal); I47.1 Supraventricular tachycardia; J96.11 Chronic respiratory failure with hypoxia; F05 Delirium due to known physiological condition; I11.0 Hypertensive heart disease with heart failure; I50.22 Chronic systolic (congestive) heart failure; N39.0 Urinary tract infection, site not specified; E44.1 Mild protein-calorie malnutrition; J98.11 Atelectasis; Z99.81 Dependence on supplemental oxygen; I48.0 Paroxysmal atrial fibrillation; J44.9 Chronic obstructive pulmonary disease, unspecified; K21.9 Gastro-esophageal reflux disease without esophagitis; F41.9 Anxiety disorder, unspecified; G47.33 Obstructive sleep apnea (adult) (pediatric); Z91.19 Patient's noncompliance with other medical treatment and regimen; M81.0 Age-related osteoporosis without current pathological fracture; E53.8 Deficiency of other specified B group vitamins; Z79.01 Long term (current) use of anticoagulants; Z79.82 Long term (current) use of aspirin; K29.70 Gastritis, unspecified, without bleeding; K29.80 Duodenitis without bleeding; D50.9 Iron deficiency anemia, unspecified; D72.829 Elevated white blood cell count, unspecified; Z68.25 Body mass index [BMI] 25.0-25.9, adult
CPT/HCPCS: 36415; 36600; 70450; 71010; 71020; 72170; 73552; 80048; 80076; 81003; 82550; 82553; 82803; 82947; 83735; 84443; 84484; 85025; 85027; 85610; 85730; 87086; 87088; 87186; 92526; 92610; 93005; 93970; 94640; 94760; 96361; 96374; 96376; 97116; 97161; 97165; 97530; 97535; 99285; C9113; G8978-GP; G8979-GP; G8987-GO; G8988-GO; G8996-GN; G8997-GN; G8998-GN; J0360; J0696; J1630; J1650; J1940; J2060; J2270; J3490